=== PATIENT | male | born 1970 | race Two or more races ===

== ENCOUNTER 2017-06-12 10:35 | Emergency (ER) | payer OTHER ==
[~2017-06-12] VITALS: Ht 172.7 cm; Wt 117.9 kg
[~2017-06-12 10:35] MED LIST: CARVEDILOL25 MG ORAL; FUROSEMIDE80 MG ORAL; HYDROCHLOROTHIA50 MG ORAL; IBUPROFEN600 MG ORAL; LOSARTAN POTASS50 MG ORAL; NORCO 5-325 TA1 EACH ORAL
[2017-06-12 10:48] VITALS: BP 188/117
[2017-06-12] MEDS ORDERED: Cyclobenzaprine 10mg Tab ORAL ONE (11:30)
[2017-06-12 11:41] LABS: HEMATOCRIT 50.7 % (42.0-52.0); MEAN CORPUSCULAR VOLUME 91 FL (80-99); PLATELET COUNT 248 K/UL (150-450); RED CELL DISTRIBUTION WIDTH 14.9 % (11.6-14.8); WHITE BLOOD COUNT 6.7 K/UL (4.8-10.8)
--- NOTE | 2017-06-12 11:56 | Diagnostic Imaging Report ---
Indication: Rest pain Technique: XRAY Chest 1v Comparison: None Findings: Heart size within upper limits for normal. There is prominence of the upper mediastinum. Mass or adenopathy is not entirely excluded. There is no focal airspace consolidation, pleural effusion or pneumothorax. No acute osseous abnormality seen. IMPRESSION: Prominence of the superior mediastinum. Mass or adenopathy not excluded. Recommend CT of the chest with IV contrast for further evaluation. No focal airspace consolidation.
[2017-06-12 11:58] LABS: ANION GAP 6 mmol/L (5-15); BLOOD UREA NITROGEN 10 mg/dL (7-18); CALCIUM 8.9 MG/DL (8.5-10.1); CARBON DIOXIDE 33 MMOL/L (21-32); CHLORIDE 102 MMOL/L (98-107); CREATININE 1.1 MG/DL (0.55-1.30); POTASSIUM 3.9 MMOL/L (3.5-5.1); SODIUM 141 MMOL/L (136-145)
[2017-06-12 12:02] LABS: ALANINE AMINOTRANSFERASE 44 U/L (12-78); ALBUMIN 3.8 G/DL (3.4-5.0); ALBUMIN/GLOBULIN RATIO 0.8 (1.0-2.7); ALKALINE PHOSPHATASE 84 U/L (46-116); ASPARTATE AMINO TRANSFERASE 39 U/L (15-37); BILIRUBIN,TOTAL 0.4 MG/DL (0.2-1.0)
--- NOTE | 2017-06-12 12:26 | Emergency Room Report ---
History of Present Illness General Chief Complaint: Chest Pain Source: Patient Present Illness HPI 46-year-old male with history of hypertension and CHF presents with right neck pain radiating to his right chest, worse with moving the shoulder and neck Reports no shortness of breath, no fevers, no hemoptysis, no diaphoresis, no syncope He tried ibuprofen with only partial relief Allergies: Coded Allergies: NO KNOWN DRUG ALLERGIES (Verified Allergy, Unknown, 05/19/15) Patient History Past Medical History: see triage record Reviewed Nursing Documentation: PMH: Agreed; PSxH: Agreed Nursing Documentation-PMH Hx Cardiac Problems: Yes - Heart Failure since 2010 Hx Hypertension: Yes Hx Diabetes: No Review of Systems All Other Systems: negative except mentioned in HPI Physical Exam Vital Signs Date Time Temp Pulse Resp B/P (MAP) Pulse Ox O2 Delivery O2 Flow Rate FiO2 06/12/17 10:44 97.7 74 20 188/117 100 Room Air 97.7 Sp02 EP Interpretation: reviewed, normal General Appearance: no apparent distress, alert, non-toxic Head: normocephalic Eyes: bilateral eye normal inspection, bilateral eye PERRL, bilateral eye EOMI ENT: normal ENT inspection, hearing grossly normal, normal pharynx, no angioedema, normal voice, moist mucus membranes Neck: normal inspection, full range of motion, supple, supple/symm/no masses Respiratory: chest non-tender, lungs clear, normal breath sounds, chest symmetrical, palpation of chest normal Cardiovascular #1: normal peripheral pulses, regular rate, rhythm Cardiovascular #2: 2+ radial (R), 2+ radial (L), 2+ femoral (R), 2+ femoral (L) Gastrointestinal: normal inspection, non tender, soft, no mass, no guarding, no rebound Rectal: deferred Genitourinary: normal inspection, no CVA tenderness Musculoskeletal: back normal, gait/station normal, normal range of motion, non- tender, no calf tenderness, Yung's Sign negative Neurologic: alert, responsive, 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 Results Rhythm Strip Time: 12:23 EP Interpretation: yes Rate: EIGHTY SIX Rhythm: NSR, no PVC's, no ectopy, other Chest X-Ray Diagnostic Results Chest X-Ray Diagnostic Results : Chest X-Ray Ordered: Yes # of Views/Limited/Complete: 1 View Indication: Chest Pain EP Interpretation: Yes Interpretation: no consolidation, no effusion, no pneumothorax Impression: No acute disease Electronically Signed by: Valdo Guerra MD Last Vital Signs Date Time Temp Pulse Resp B/P (MAP) Pulse Ox O2 Delivery O2 Flow Rate FiO2 06/12/17 11:41 97.7 06/12/17 10:49 74 20 Room Air 06/12/17 10:48 188/117 100 VALDO GUERRA M.D Jun 12, 2017 12:26
[2017-06-12 14:08] VITALS: BP 156/96
--- NOTE | 2017-06-12 14:17 | Diagnostic Imaging Report ---
Indication: Chest pain, shortness of breath Technique: CT pulmonary angiogram performed utilizing automated exposure control with intravenous contrast. Axial, sagittal and coronal reconstructions were obtained. 3-D volumetric reconstructions were also performed. CT dose: Total DLP 1400.32 mGycm; CTDI vol 35.75 mGy Comparison: Correlation made to concurrent chest radiograph Findings: There is adequate opacification of the pulmonary arteries. There is no evidence of pulmonary embolism. The main pulmonary artery is normal in caliber. Thoracic aorta is normal in caliber. No definite evidence to suggest aortic dissection however exam is not optimized for evaluation of the aorta. There are mild atherosclerotic calcifications in the aortic arch. There is a common origin of the right brachiocephalic and left common carotid arteries (bovine arch). Proximal portions of the visualized great vessels are patent and normal in caliber. Abdominal aorta is normal in caliber. There is no definite focal airspace consolidation, pleural effusion or pneumothorax. There are mild dependent atelectatic changes in the posterior lungs bilaterally. There is a 6 mm nodule along the minor fissure in the right middle lobe (series 11 image #26). Heart size within normal limits. There is no pericardial effusion. There are borderline enlarged mediastinal bilateral hilar lymph nodes. Thyroid is unremarkable in appearance. There is a 1.4 cm low-attenuation structure in the right kidney which may represent a simple cyst. Remainder of the partially visualized upper abdomen grossly unremarkable. There are mild degenerative changes of the spine. No acute osseous abnormality seen. IMPRESSION: No pulmonary embolism. No thoracic aortic aneurysm or evidence to suggest aortic dissection. Mildly enlarged mediastinal and bilateral hilar lymph nodes. These findings are nonspecific. Potential considerations include sarcoidosis. Other etiologies are not excluded. Clinical correlation and follow-up exam recommended. 6 mm nodule in the right middle lobe. If patient considered high risk for lung cancer consider follow-up CT chest within 12 months. Probable right renal cyst. The CT scanner at [facility] is accredited by the [employer] and the scans are performed using protocols designed to limit radiation exposure to as low as reasonably achievable to attain images of sufficient resolution adequate for diagnostic evaluation.
[2017-06-12] MEDS ORDERED: CYCLOBENZAPRINE10 MG ORAL (14:44)
[2017-06-12 15:16] VITALS: BP 147/95
--- NOTE | 2017-06-13 18:10 | Cardiology Report ---
APPROVED REPORT EKG Measurement Heart [id number] Normal sinus rhythm Left axis deviation Incomplete left bundle branch block Abnormal ECG
== END 2017-06-12 15:19 | disposition home or self-care (01) ==
LOC: EMR 12:30
DX: R07.9 Chest pain, unspecified (principal); I11.0 Hypertensive heart disease with heart failure; I50.9 Heart failure, unspecified
CPT/HCPCS: 36415; 71045; 71275; 80053; 84484; 85007; 85025; 85379; 93005; 99284; Q9967

== ENCOUNTER 2017-12-16 10:12 | Emergency (ER) | payer OTHER ==
[~2017-12-16] VITALS: Ht 172.7 cm; Wt 113.4 kg
[~2017-12-16 10:12] MED LIST changes: +CYCLOBENZAPRINE10 MG ORAL
[2017-12-16 10:28] VITALS: BP 136/103
[2017-12-16] MEDS ORDERED: Sodium Chloride 500ML 500 ML IV ONE (10:37)
[2017-12-16] MEDS ORDERED: Lidocaine 2% Visc 15ml soln ORAL ONE (10:45)
[2017-12-16] MEDS ORDERED: Mylanta II UD 30ml ORAL ONE (10:45)
[2017-12-16] MEDS ORDERED: Dicyclomine HCl 10mg/5ml oral soln ORAL ONE (10:45)
[2017-12-16 10:52] LABS: BILIRUBIN, URINE 1+ (NEGATIVE); GLUCOSE, URINE (UA) NEGATIVE (NEGATIVE); KETONES,URINE 1+ (NEGATIVE); LEUKOCYTE ESTERASE ,URINE 1+ (NEGATIVE); NITRITE,URINE NEGATIVE (NEGATIVE); PH,URINE 6.5 (4.5-8.0); PROTEIN,URINE 2+ (NEGATIVE); UROBILINOGEN,URINE 8 MG/DL (0.0-1.0)
[2017-12-16 10:57] LABS: APPEARANCE,URINE SLIGHTLY CLOUDY; COLOR,URINE YELLOW
[2017-12-16 10:59] LABS: BASOPHILS % (AUTO) 1.9 % (0.0-2.0); EOSINOPHILS % (AUTO) 1.6 % (0.0-3.0); HEMATOCRIT 51.1 % (42.0-52.0); HEMOGLOBIN 16.2 G/DL (14.2-18.0); LYMPHOCYTES % (AUTO) 45.2 % (20.0-45.0); MEAN CORPUSCULAR VOLUME 85 FL (80-99); MONOCYTES % (AUTO) 12.8 % (1.0-10.0); NEUTROPHILS % (AUTO) 38.5 % (45.0-75.0); PLATELET COUNT 282 K/UL (150-450); RED BLOOD COUNT 5.98 M/UL (4.70-6.10); RED CELL DISTRIBUTION WIDTH 13.7 % (11.6-14.8); WHITE BLOOD COUNT 5.9 K/UL (4.8-10.8)
[2017-12-16 11:05] LABS: ANION GAP 5 mmol/L (5-15); BLOOD UREA NITROGEN 10 mg/dL (7-18); CALCIUM 8.7 MG/DL (8.5-10.1); CARBON DIOXIDE 30 MMOL/L (21-32); CHLORIDE 104 MMOL/L (98-107); CREATININE 1.1 MG/DL (0.55-1.30); POTASSIUM 3.6 MMOL/L (3.5-5.1); SODIUM 139 MMOL/L (136-145)
[2017-12-16 11:10] LABS: ALANINE AMINOTRANSFERASE 43 U/L (12-78); ALBUMIN 3.8 G/DL (3.4-5.0); ALBUMIN/GLOBULIN RATIO 0.9 (1.0-2.7); ALKALINE PHOSPHATASE 75 U/L (46-116); ASPARTATE AMINO TRANSFERASE 41 U/L (15-37); BILIRUBIN,TOTAL 0.5 MG/DL (0.2-1.0)
[2017-12-16] MEDS ORDERED: Isovue-300 100ml vial INJ PRN (12:15)
[2017-12-16] MEDS ORDERED: Morphine Sulfate 4mg/ml Inj (IV USE ONLY) IVP ONE (12:15)
--- NOTE | 2017-12-16 13:02 | Diagnostic Imaging Report ---
Clinical Indication: Left-sided abdominal pain radiating to the back after eating fast food one week ago Technique: No oral contrast utilized, per emergency room physician request IV administration nonionic contrast. Venous phase spiral acquisition obtained through the abdomen and pelvis. Multiplanar reconstructions were generated. Total dose length product 943.53 mGycm. CTDIvol(s) 19.75 mGy. Dose reduction achieved using automated exposure control Comparison: none Findings: Abdominal wall musculature is markedly atrophic and fatty replaced. There is degenerative change of the lower thoracic spine. The bones are otherwise unremarkable. The included lung bases are clear. Lack of enteric contrast limits assessment of the GI tract. The appendix is normal. There is colonic diverticulosis, predominantly involving the descending colon. There is very questionable minimal infiltration of the pericolonic fat adjacent to the descending colon. No small bowel distention. No free or loculated intraperitoneal gas or fluid is evident. There is a tiny fat-containing umbilical hernia. The distal esophagus, stomach, duodenum are unremarkable. The liver is diffusely hypoattenuating, consistent with fatty change. Is somewhat enlarged. No focal abnormality. The gallbladder and bile ducts are unremarkable. The pancreas is unremarkable. However, there is peripancreatic lymphadenopathy, with nodes measuring up to 2.9 cm long axis dimension. The spleen and adrenals are unremarkable. The right kidney demonstrates a small interpolar region cyst. Left kidney demonstrates 2 tiny subcentimeter low-attenuation lesions visible on the coronal images which are too small to characterize. No retroperitoneal or mesenteric mass or adenopathy. No pelvic mass or adenopathy. The bladder is nondistended. There is equivocal mild bladder wall thickening, but this is probably an artifact of lack of distention. Impression: Limited assessment of the GI tract, due to lack of enteric contrast administration Descending colonic diverticulosis. Equivocal trace infiltration of the pericolonic fat, of doubtful significance but if real could indicate very early diverticulitis No acute process otherwise Peripancreatic lymphadenopathy. Significance of this is uncertain Mildly enlarged fatty liver Marked atrophy and fatty replacement of the abdominal wall musculature Equivocal mild bladder wall thickening, probably an artifact of under distention Right renal cyst incidentally noted. 2 small to characterize left renal lesions, most likely benign cortical cysts. No further follow-up necessary Degenerative thoracic spondylosis incidentally noted The CT scanner at [facility] is accredited by the [employer] and the scans are performed using protocols designed to limit radiation exposure to as low as reasonably achievable to attain images of sufficient resolution adequate for diagnostic evaluation.
[2017-12-16] MEDS ORDERED: CIPROFLOXACIN500 M2 ORAL (13:35)
[2017-12-16] MEDS ORDERED: METRONIDAZOLE500 MG ORAL (13:35)
[2017-12-16] MEDS ORDERED: NORCO 5-325 TA1 EACH ORAL (13:35)
[2017-12-16] MEDS ORDERED: ROBAXIN-750750 MG PO (13:35)
[2017-12-16 14:08] VITALS: BP 130/78
--- NOTE | 2017-12-17 06:49 | Emergency Room Report ---
History of Present Illness General Chief Complaint: Abdominal Pain Source: Patient Present Illness HPI 47-year-old male presents ED for evaluation of abdominal pain. Started approximately one week ago. Left-sided, sharp, 8 out of 10, radiating to the back. Back pain is worse with twisting and bending. Denies fevers or chills. Denies nausea or vomiting. Denies any bloody stools. States he did lift something heavy last week which triggered his back pain. Denies chest pain or shortness of breath. No other aggravating relieving factors. Denies any other associated symptoms Allergies: Coded Allergies: NO KNOWN DRUG ALLERGIES (Verified Allergy, Unknown, 05/19/15) Patient History Past Medical History: HTN, CHF Past Surgical History: none Pertinent Family History: none Social History: Denies: smoking, alcohol use, drug use Immunizations: UTD Reviewed Nursing Documentation: PMH: Agreed; PSxH: Agreed Nursing Documentation-PMH Past Medical History: No History, Except For Hx Cardiac Problems: Yes - Heart Failure since 2010 Hx Hypertension: Yes Hx Diabetes: No Review of Systems All Other Systems: negative except mentioned in HPI Physical Exam Vital Signs Date Time Temp Pulse Resp B/P (MAP) Pulse Ox O2 Delivery O2 Flow Rate FiO2 12/16/17 10:18 99.0 79 18 136/103 95 Room Air 99.0 Sp02 EP Interpretation: reviewed, normal General Appearance: no apparent distress, alert, GCS 15, non-toxic, obese Head: normocephalic, atraumatic Eyes: bilateral eye normal inspection, bilateral eye PERRL ENT: hearing grossly normal, normal pharynx, no angioedema, normal voice Neck: full range of motion, supple/symm/no masses Respiratory: chest non-tender, lungs clear, normal breath sounds, speaking full sentences Cardiovascular #1: regular rate, rhythm, no edema Cardiovascular #2: 2+ carotid (R), 2+ carotid (L), 2+ radial (R), 2+ radial (L) , 2+ dorsalis pedis (R), 2+ dorsalis pedis (L) Gastrointestinal: normal bowel sounds, soft, non-distended, no guarding, no rebound, tenderness Rectal: deferred Genitourinary: normal inspection, no CVA tenderness Musculoskeletal: gait/station normal, normal range of motion, other - paraspinal tenderness Neurologic: alert, oriented x3, responsive, motor strength/tone normal, sensory intact, speech normal Psychiatric: judgement/insight normal, memory normal, mood/affect normal, no suicidal/homicidal ideation Reflexes: 3+ bicep (R), 3+ bicep (L), 3+ tricep (R), 3+ tricep (L), 3+ knee (R) , 3+ knee (L) Skin: normal color, no rash, warm/dry, well hydrated Lymphatic: no adenopathy Medical Decision Making Diagnostic Impression: Primary Impression: Diverticulosis Qualified Codes: K57.30 - Diverticulosis of large intestine without perforation or abscess without bleeding Additional Impression: Back strain Qualified Codes: S39.012A - Strain of muscle, fascia and tendon of lower back , initial encounter ER Course Hospital Course 47 yo M presents to ED c/o abdominal pain, back pain Differential diagnoses include: appendicitis, diverticulitis, SBO, kidney stone Clinical course 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 After initial history and physical I ordered labs, IV fluids, UA, pain medication and CT scan Labs - no leukocytosis, Hb/Hct stable. electrolytes ok. CT abdomen and pelvis - diverticulosis, possible early diverticulitis Discussed findings with patient, . Back pain is likely muscular. We will prescribe muscle relaxers. Patient is afebrile, nontoxic-appearing with no leukocytosis. I believe patient can be discharged to home with antibiotics, pain medications. Patient states he has a PMD to follow-up with. I feel this is a highly complex case requiring extensive working including EKG/ Rhythm strip, Xray/CT/US, Blood/urine lab work, repeat exams while in ED, and administration of strong opiates/narcotics for pain control, admission to hospital or close patient follow up. Diagnosis - diverticulosis, back pain stable and discharged to home with prescription for Cipro and Flagyl, [place], Robaxin . Followup with PMD. Return to ED if symptoms recur or worsen Labs Test 12/16/17 10:45 White Blood Count 5.9 K/UL (4.8-10.8) Red Blood Count 5.98 M/UL (4.70-6.10) Hemoglobin 16.2 G/DL (14.2-18.0) Hematocrit 51.1 % (42.0-52.0) Mean Corpuscular Volume 85 FL (80-99) Mean Corpuscular Hemoglobin 27.1 PG (27.0-31.0) Mean Corpuscular Hemoglobin Concent 31.7 G/DL (32.0-36.0) Red Cell Distribution Width 13.7 % (11.6-14.8) Platelet Count 282 K/UL (150-450) Mean Platelet Volume 8.4 FL (6.5-10.1) Neutrophils (%) (Auto) 38.5 % (45.0-75.0) Lymphocytes (%) (Auto) 45.2 % (20.0-45.0) Monocytes (%) (Auto) 12.8 % (1.0-10.0) Eosinophils (%) (Auto) 1.6 % (0.0-3.0) Basophils (%) (Auto) 1.9 % (0.0-2.0) Urine Color Yellow Urine Appearance Slightly cloudy Urine pH 6.5 (4.5-8.0) Urine Specific [place] 1.010 (1.005-1.035) Urine Protein 2+ (NEGATIVE) Urine Glucose (UA) Negative (NEGATIVE) Urine Ketones 1+ (NEGATIVE) Urine Blood Negative (NEGATIVE) Urine Nitrite Negative (NEGATIVE) Urine Bilirubin 1+ (NEGATIVE) Urine Ictotest Negative (NEGATIVE) Urine Urobilinogen 8 MG/DL (0.0-1.0) Urine Leukocyte Esterase 1+ (NEGATIVE) Urine RBC 0-2 /HPF (0 - 0) Urine WBC 2-4 /HPF (0 - 0) Urine Squamous Epithelial Cells Few /LPF (NONE/OCC) Urine Bacteria Few /HPF (NONE) Sodium Level 139 MMOL/L (136-145) Potassium Level 3.6 MMOL/L (3.5-5.1) Chloride Level 104 MMOL/L (98-107) Carbon Dioxide Level 30 MMOL/L (21-32) Anion Gap 5 mmol/L (5-15) Blood Urea Nitrogen 10 mg/dL (7-18) Creatinine 1.1 MG/DL (0.55-1.30) Estimat Glomerular Filtration Rate > 60 mL/min (>60) Glucose Level 116 MG/DL (74-106) Calcium Level 8.7 MG/DL (8.5-10.1) Total Bilirubin 0.5 MG/DL (0.2-1.0) Aspartate Amino Transf (AST/SGOT) 41 U/L (15-37) Alanine Aminotransferase (ALT/SGPT) 43 U/L (12-78) Alkaline Phosphatase 75 U/L (46-116) Total Protein 7.9 G/DL (6.4-8.2) Albumin 3.8 G/DL (3.4-5.0) Globulin 4.1 g/dL Albumin/Globulin Ratio 0.9 (1.0-2.7) Lipase 171 U/L (73-393) CT/MRI/US Diagnostic Results CT/MRI/US Diagnostic Results : Imaging Test Ordered: CT A/P Impression diverticulosis sigmoid colon, possible early diverticulitis Last Vital Signs Date Time Temp Pulse Resp B/P (MAP) Pulse Ox O2 Delivery O2 Flow Rate FiO2 12/16/17 14:08 98.0 78 18 130/78 98 Room Air Status: improved Disposition: HOME, SELF-CARE Condition: Stable Scripts Methocarbamol* (ROBAXIN-750*) 750 Mg Tablet 750 MG PO TID, #21 TAB 0 Refills Prov: Brandon Sen MD 12/16/17 Hydrocodone Bit/Acetaminophen 5-325* (NORCO 5-325*) 1 Each Tablet 1 TAB ORAL Q6H PRN for For Pain, #10 TAB 0 Refills Prov: Brandon Sen MD 12/16/17 Metronidazole* (FLAGYL*) 500 Mg Tablet 500 MG ORAL THREE TIMES A DAY, #21 TAB Prov: Brandon Sen MD 12/16/17 Ciprofloxacin Hcl* (CIPROFLOXACIN HCL*) 500 Mg Tablet 500 MG ORAL Q12H, #14 TAB 0 Refills Prov: Brandon Sen MD 12/16/17 Patient Instructions: Diverticulitis, [id number] Brandon Sen MD Dec 17, 2017 06:49
== END 2017-12-16 14:13 | disposition home or self-care (01) ==
LOC: EMR 10:35
DX: K57.90 Diverticulosis of intestine, part unspecified, without perforation or abscess without bleeding (principal); M54.9 Dorsalgia, unspecified; I11.0 Hypertensive heart disease with heart failure; I50.9 Heart failure, unspecified
CPT/HCPCS: 36415; 74177; 80053; 81003; 83690; 85025; 96374; 96375; 99284; J2270; J7040; Q9967; S0028

== ENCOUNTER 2017-12-30 13:43 | Emergency (ER) | payer OTHER ==
[~2017-12-30] VITALS: Ht 172.7 cm; Wt 113.4 kg
[~2017-12-30 13:43] MED LIST changes: +CIPROFLOXACIN500 M2 ORAL; +METRONIDAZOLE500 MG ORAL; +ROBAXIN-750750 MG PO
[2017-12-30] MEDS ORDERED: Isovue-300 100ml vial INJ PRN (14:15)
[2017-12-30 14:40] LABS: BASOPHILS % (AUTO) 0.8 % (0.0-2.0); EOSINOPHILS % (AUTO) 1.5 % (0.0-3.0); HEMATOCRIT 47.2 % (42.0-52.0); HEMOGLOBIN 15.5 G/DL (14.2-18.0); LYMPHOCYTES % (AUTO) 41.8 % (20.0-45.0); MEAN CORPUSCULAR VOLUME 86 FL (80-99); MONOCYTES % (AUTO) 14.4 % (1.0-10.0); NEUTROPHILS % (AUTO) 41.6 % (45.0-75.0); PLATELET COUNT 285 K/UL (150-450); RED BLOOD COUNT 5.51 M/UL (4.70-6.10); WHITE BLOOD COUNT 5.8 K/UL (4.8-10.8)
--- NOTE | 2017-12-30 14:54 | Emergency Room Report ---
History of Present Illness General Chief Complaint: Abdominal Pain Source: Patient, Medical Record Present Illness HPI This patient states he was seen about a week ago for abdominal pain. He was seen here and placed on antibiotics for possible diverticulitis. He states that he took the antibiotics as prescribed but continues to have pain in the left side of his abdomen. He has had some diarrhea. He denies constipation. He denies fever or chills. He denies nausea or vomiting. He has no other complaints. Allergies: Coded Allergies: NO KNOWN DRUG ALLERGIES (Verified Allergy, Unknown, 05/19/15) Patient History Past Medical History: see triage record, HTN, CHF Social History: Denies: smoking, alcohol use, drug use Reviewed Nursing Documentation: PMH: Agreed; PSxH: Agreed Nursing Documentation-PMH Past Medical History: No History, Except For Hx Cardiac Problems: Yes - Heart Failure since 2010 Hx Hypertension: Yes Hx Diabetes: No Review of Systems All Other Systems: negative except mentioned in HPI Physical Exam Vital Signs Date Time Temp Pulse Resp B/P (MAP) Pulse Ox O2 Delivery O2 Flow Rate FiO2 12/30/17 13:47 98.2 118 18 117/82 97 Room Air 98.2 Sp02 EP Interpretation: reviewed, normal General Appearance: no apparent distress, alert, GCS 15, non-toxic Head: normocephalic, atraumatic Eyes: bilateral eye normal inspection, bilateral eye PERRL ENT: hearing grossly normal, normal pharynx, no angioedema, normal voice Neck: full range of motion, supple/symm/no masses Respiratory: chest non-tender, lungs clear, normal breath sounds, no respiratory distress, no retraction, no accessory muscle use, speaking full sentences Cardiovascular #1: regular rate, rhythm, no edema Gastrointestinal: normal bowel sounds, soft, non-distended, no guarding, no rebound, tenderness - TTP in the L. abdomen LUQ and LLQ. Rectal: deferred Musculoskeletal: back normal, gait/station normal, normal range of motion, non- tender Neurologic: alert, oriented x3, responsive, motor strength/tone normal, sensory intact, speech normal Psychiatric: judgement/insight normal, memory normal, mood/affect normal, no suicidal/homicidal ideation Skin: normal color, no rash, warm/dry, well hydrated Medical Decision Making Diagnostic Impression: Primary Impression: Abdominal pain Additional Impression: Lymphadenopathy ER Course This patient was treated with a course of antibiotics for early diverticulitis based on a CT week ago. Given the patient's ongoing symptoms and tenderness of palpation the left abdomen, I felt that I should repeat the CT scan for concern of complicated diverticulitis or other etiology the patient's symptoms. Also a consideration at that time is colitis given the diarrhea. CT of the abdomen and pelvis showed no evidence of diverticulitis. There was noted again for this patient to have tha-pancreatic lymphadenopathy. I am uncertain of the significance of this. Possibly this could be a viral inflammation versus neoplastic. The patient was instructed to follow-up with his primary care physician for further monitoring and workup. The patient's laboratory values are also unremarkable. At this time, I did not identify an emergency medical condition. The patient is instructed follow closely with his primary care physician. Laboratory Tests Test 12/30/17 14:00 12/30/17 15:00 White Blood Count 5.8 K/UL (4.8-10.8) Red Blood Count 5.51 M/UL (4.70-6.10) Hemoglobin 15.5 G/DL (14.2-18.0) Hematocrit 47.2 % (42.0-52.0) Mean Corpuscular Volume 86 FL (80-99) Mean Corpuscular Hemoglobin 28.1 PG (27.0-31.0) Mean Corpuscular Hemoglobin Concent 32.8 G/DL (32.0-36.0) Red Cell Distribution Width 14.0 % (11.6-14.8) Platelet Count 285 K/UL (150-450) Mean Platelet Volume 8.4 FL (6.5-10.1) Neutrophils (%) (Auto) 41.6 % (45.0-75.0) L Lymphocytes (%) (Auto) 41.8 % (20.0-45.0) Monocytes (%) (Auto) 14.4 % (1.0-10.0) H Eosinophils (%) (Auto) 1.5 % (0.0-3.0) Basophils (%) (Auto) 0.8 % (0.0-2.0) Sodium Level 140 MMOL/L (136-145) Potassium Level 4.1 MMOL/L (3.5-5.1) Chloride Level 102 MMOL/L (98-107) Carbon Dioxide Level 29 MMOL/L (21-32) Anion Gap 9 mmol/L (5-15) Blood Urea Nitrogen 12 mg/dL (7-18) Creatinine 1.2 MG/DL (0.55-1.30) Estimate Glomerular Filtration Rate > 60 mL/min (>60) Glucose Level 106 MG/DL (74-106) Calcium Level 8.9 MG/DL (8.5-10.1) Total Bilirubin 0.5 MG/DL (0.2-1.0) Aspartate Amino Transferase (AST) 43 U/L (15-37) H Alanine Aminotransferase (ALT) 58 U/L (12-78) Alkaline Phosphatase 71 U/L (46-116) Total Protein 8.3 G/DL (6.4-8.2) H Albumin 3.8 G/DL (3.4-5.0) Globulin 4.5 g/dL Albumin/Globulin Ratio 0.8 (1.0-2.7) L Lipase 241 U/L (73-393) Urine Color Pale yellow Urine Appearance Clear Urine pH 7 (4.5-8.0) Urine Specific [place] 1.005 (1.005-1.035) Urine Protein 1+ (NEGATIVE) H Urine Glucose (UA) Negative (NEGATIVE) Urine Ketones Negative (NEGATIVE) Urine Blood Negative (NEGATIVE) Urine Nitrite Negative (NEGATIVE) Urine Bilirubin Negative (NEGATIVE) Urine Urobilinogen Normal MG/DL (0.0-1.0) Urine Leukocyte Esterase 1+ (NEGATIVE) H Urine RBC 0-2 /HPF (0 - 0) H Urine WBC 0-2 /HPF (0 - 0) Urine Squamous Epithelial Cells None /LPF (NONE/OCC) Urine Bacteria Few /HPF (NONE) CT/MRI/US Diagnostic Results CT/MRI/US Diagnostic Results : Imaging Test Ordered: CT abd/pelvis Impression Impression: No definite acute abnormality Colonic diverticulosis. No evidence of acute diverticulitis. Note that previously questioned pericolonic fat stranding is noted all evident currently. Peripancreatic lymphadenopathy, also previously reported. Significance/etiology uncertain, could be reactive or neoplastic. Considerable fatty replacement and atrophy of the abdominal wall musculature, also previously reported. Incidental finding right renal cyst, also previously reported Last Vital Signs Date Time Temp Pulse Resp B/P (MAP) Pulse Ox O2 Delivery O2 Flow Rate FiO2 12/30/17 13:47 98.2 118 18 117/82 97 Room Air 98.2 Status: improved Disposition: HOME, SELF-CARE Condition: Improved Referrals: ANNE-MARIE IBRAHIMREFERRING (PCP) Patient Instructions: Abdominal Pain, Adult Babita Patel DO Dec 30, 2017 14:54
[2017-12-30 14:57] VITALS: BP 120/84
[2017-12-30 15:05] LABS: ANION GAP 9 mmol/L (5-15); BLOOD UREA NITROGEN 12 mg/dL (7-18); CALCIUM 8.9 MG/DL (8.5-10.1); CARBON DIOXIDE 29 MMOL/L (21-32); CHLORIDE 102 MMOL/L (98-107); CREATININE 1.2 MG/DL (0.55-1.30); POTASSIUM 4.1 MMOL/L (3.5-5.1); SODIUM 140 MMOL/L (136-145)
[2017-12-30 15:10] LABS: ALANINE AMINOTRANSFERASE 58 U/L (12-78); ALBUMIN 3.8 G/DL (3.4-5.0); ALBUMIN/GLOBULIN RATIO 0.8 (1.0-2.7); ALKALINE PHOSPHATASE 71 U/L (46-116); ASPARTATE AMINO TRANSFERASE 43 U/L (15-37); BILIRUBIN,TOTAL 0.5 MG/DL (0.2-1.0)
[2017-12-30 15:27] LABS: APPEARANCE,URINE CLEAR; BILIRUBIN, URINE NEGATIVE (NEGATIVE); COLOR,URINE PALE YELLOW; GLUCOSE, URINE (UA) NEGATIVE (NEGATIVE); KETONES,URINE NEGATIVE (NEGATIVE); LEUKOCYTE ESTERASE ,URINE 1+ (NEGATIVE); NITRITE,URINE NEGATIVE (NEGATIVE); PH,URINE 7 (4.5-8.0); PROTEIN,URINE 1+ (NEGATIVE); UROBILINOGEN,URINE NORMAL MG/DL (0.0-1.0)
--- NOTE | 2017-12-30 16:16 | Diagnostic Imaging Report ---
Clinical Indication: Abdominal pain Technique: No oral contrast utilized, per emergency room physician request IV administration nonionic contrast. Venous phase spiral acquisition obtained through the abdomen and pelvis. Multiplanar reconstructions were generated. Total dose length product 1322.58 mGycm. CTDIvol(s) 26.2 mGy. Dose reduction achieved using automated exposure control Comparison: 12/16/2017 Findings: Lack of enteric contrast administration limits assessment of the GI tract. There are a few colonic diverticula. No evidence of acute diverticulitis. Previously demonstrated pericolonic fat stranding is not all evident currently. The appendix is normal. No small bowel distention. No free or loculated intraperitoneal gas or fluid is demonstrated. The distal esophagus, stomach, duodenum are unremarkable. Previously demonstrated hepatic low attenuation is not evident currently. The liver, gallbladder, bile ducts, pancreas, spleen, adrenals, left kidney are unremarkable. Previously reported left renal subcentimeter low-attenuation lesions are not evident on this exam. The right kidney demonstrates a lower pole cyst. Previously demonstrated peripancreatic lymphadenopathy is again demonstrated. No retroperitoneal or mesenteric mass or adenopathy. No pelvic mass or adenopathy. The included lung bases are clear. There is considerable atrophy and fatty infiltration of the abdominal wall musculature again noted. The bones are unremarkable. Impression: No definite acute abnormality Colonic diverticulosis. No evidence of acute diverticulitis. Note that previously questioned pericolonic fat stranding is noted all evident currently. Peripancreatic lymphadenopathy, also previously reported. Significance/etiology uncertain, could be reactive or neoplastic. Considerable fatty replacement and atrophy of the abdominal wall musculature, also previously reported. Incidental finding right renal cyst, also previously reported The CT scanner at [facility] is accredited by the [employer] and the scans are performed using protocols designed to limit radiation exposure to as low as reasonably achievable to attain images of sufficient resolution adequate for diagnostic evaluation.
[2017-12-30] MEDS ORDERED: IBUPROFEN800 MG ORAL (16:26)
[2017-12-30] MEDS ORDERED: Ketorolac 30mg Inj IV ONE (16:30)
[2017-12-30 16:35] VITALS: BP 119/82
[2017-12-30 16:36] VITALS: BP 119/82
== END 2017-12-30 16:36 | disposition home or self-care (01) ==
LOC: EMR 14:12
DX: R10.9 Unspecified abdominal pain (principal); R59.0 Localized enlarged lymph nodes; I11.0 Hypertensive heart disease with heart failure; I50.9 Heart failure, unspecified
CPT/HCPCS: 36415; 74177; 80053; 81003; 83690; 85025; 96361; 96374; 99284; J1885; Q9967

== ENCOUNTER 2018-07-09 09:48 | Emergency (ER) | payer OTHER ==
[~2018-07-09] VITALS: Ht 172.7 cm; Wt 117.0 kg
[~2018-07-09 09:48] MED LIST changes: +IBUPROFEN800 MG ORAL
--- NOTE | 2018-07-09 10:39 | NUR ---
ED Nurse Note: Patient c/o pain over the left shoulder and upper back pain x 1 1/2 weeks. Per patient, patient slept wrong about 2 weeks ago and started having the pain. Patient reports no CP, SOB or dyspnea. Reports no recent injury. Patient attempted to relieve the pain with ICY/HOT patch, pain meds at home. Patients states he feels like it's muscle pain. Reports no numbness or tingling in the left arm.
--- NOTE | 2018-07-09 10:55 | Emergency Room Report ---
History of Present Illness General Chief Complaint: Pain Source: Patient Present Illness HPI Patient is a 47-year-old male presented after increased left-sided shoulder pain. Patient reports having increased pain to the left upper extremity. He reports having prior history of pain onset approximately 2 weeks ago. Patient states this is improved by position. He reports having prior history of cardiomyopathy and states that his ejection fraction was previously in the 20s. He denies any current shortness of breath. He states that he has been having pain worse with movement which Is somewhat improved by abduction.Patient states that patient states is been taking muscle relaxers without any improvement. Allergies: Coded Allergies: NO KNOWN DRUG ALLERGIES (Verified Allergy, Unknown, 05/19/15) Patient History Past Medical History: see triage record Reviewed Nursing Documentation: PMH: Agreed; PSxH: Agreed Nursing Documentation-PMH Past Medical History: No History, Except For Hx Cardiac Problems: Yes - Heart Failure since 2010 Hx Hypertension: Yes Hx Pacemaker: Yes - ICD on L side Hx Diabetes: No Review of Systems All Other Systems: negative except mentioned in HPI Physical Exam Vital Signs Date Time Temp Pulse Resp B/P (MAP) Pulse Ox O2 Delivery O2 Flow Rate FiO2 07/09/18 10:08 98.6 72 16 143/104 97 Room Air Sp02 EP Interpretation: reviewed, normal General Appearance: normal inspection, well appearing, no apparent distress, alert, GCS 15, obese Head: atraumatic ENT: normal ENT inspection, hearing grossly normal, normal voice Neck: normal inspection, full range of motion, supple, no bony tend Respiratory: normal inspection, lungs clear, normal breath sounds, no respiratory distress, no retraction, no wheezing Cardiovascular #1: regular rate, rhythm, no edema Gastrointestinal: normal inspection, normal bowel sounds, non tender, soft, no guarding, no hernia Genitourinary: no CVA tenderness Musculoskeletal: normal inspection, back normal, normal range of motion Neurologic: normal inspection, alert, oriented x3, responsive, 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 Differential diagnosis include was not limited to cervical radiculopathy, rotator cuff injury, myocardial infarction among others. Patient's pain appears to be musculoskeletal nature. He has reproducible tenderness to the left side of his neck as well as to his left posterior arm.Patient was offered imaging studies which he declined. Patient was advised to recheck with primary care physician for reevaluation. EKG showed no evidence of acute myocardial injury but showed pacemaker status. Patient was given prescription for medications for pain. He was placed in a sling. He was advised to take his arm out of sling daily to prevent decreased range of motion. Last Vital Signs Date Time Temp Pulse Resp B/P (MAP) Pulse Ox O2 Delivery O2 Flow Rate FiO2 07/09/18 10:08 98.6 72 16 143/104 97 Room Air Status: improved Disposition: HOME, SELF-CARE Condition: Stable Scripts Gabapentin* (GABAPENTIN*) 400 Mg Capsule 400 MG ORAL THREE TIMES A DAY, #30 CAP 0 Refills Prov: Nico Maxwell MD 07/09/18 Referrals: NON PHYSICIAN (PCP) Nico Maxwell MD Jul 09, 2018 10:55
[2018-07-09] MEDS ORDERED: Cyclobenzaprine 10mg Tab ORAL ONE (11:00)
[2018-07-09] MEDS ORDERED: HYDROcodone/Acetamin 5/325 tab ORAL ONE (11:00)
--- NOTE | 2018-07-09 11:20 | NUR ---
ED Nurse Note: Report given to SREE Marroquin.
[2018-07-09 11:30] VITALS: BP 143/104
[2018-07-09] MEDS ORDERED: GABAPENTIN400 MG ORAL (12:20)
[2018-07-09 12:32] VITALS: BP 132/98
--- NOTE | 2018-07-09 12:32 | NUR ---
ED Nurse Note: pt cleared to be d/c per ERMD, pt discharge and aftercare instruction provided w/ prescription, pt education done via discussion and handout, pt advised to follow up with pcp or return to ed if changes in condition, pt verbalized understanding and agrees with plan, vss, ambulatory w/ steady gait, left w/ all belongings, pt accompanied by spouse member.
== END 2018-07-09 12:32 | disposition home or self-care (01) ==
LOC: EMR 10:24
DX: M54.12 Radiculopathy, cervical region (principal); Z95.810 Presence of automatic (implantable) cardiac defibrillator; I10 Essential (primary) hypertension
CPT/HCPCS: 93005; 99282

== ENCOUNTER 2018-12-22 11:17 | Emergency (ER) | payer OTHER ==
[~2018-12-22] VITALS: Ht 172.7 cm; Wt 117.0 kg
[~2018-12-22 11:17] MED LIST changes: +GABAPENTIN400 MG ORAL
[2018-12-22 11:29] VITALS: BP 136/101
--- NOTE | 2018-12-22 11:31 | NUR ---
ED Nurse Note: Pt walked in due to heaviness/pressure on his chest that started yesterday d/t being unable to take his lasix medication. Hx of CHF and ICD on his left side chest. Denies CP and SOB at this time. Pt wants to get an evaluation. AAO x4 and ambulates with steady gait. No respiratory distress. Family member at the bed side.
--- NOTE | 2018-12-22 11:56 | NUR ---
HAND-OFF: Report given to Nicolle BALBUENA.
--- NOTE | 2018-12-22 12:30 | NUR ---
ED Nurse Note: cxr at bedside.
--- NOTE | 2018-12-22 12:59 | Diagnostic Imaging Report ---
Indication: Dyspnea Comparison: 06/12/2017 A single view chest radiograph was obtained. Findings: There is a pacemaker on the left. Leads projected over the right atrium and right ventricle are demonstrated. Cardiomegaly is again noted. There may be mild pulmonary vascular congestion present currently. Correlate clinically. The bones are unremarkable. IMPRESSION: Possible mild pulmonary vascular congestion.
[2018-12-22 13:00] VITALS: BP 127/98
[2018-12-22 13:09] VITALS: BP 136/101
--- NOTE | 2018-12-22 13:10 | NUR ---
ER DISCHARGE NOTE: Patient is cleared to be discharged per ERMD DR TOBIAS, pt is aox4, on room air, with stable vital signs. pt was given dc instructions, pt was able to verbalize understanding, pt id band removed without complications. pt is able to ambulate with steady gait. pt took all belongings.
--- NOTE | 2018-12-22 15:22 | Emergency Room Report ---
History of Present Illness General Chief Complaint: Chest Pain Source: Patient, Family Member Present Illness HPI 48-year-old male presents ED for evaluation. Patient states that he had episode of shortness of breath yesterday. Started after he forgot to take his Lasix and BP meds. States he took his medications and he started to feel better. Patient has no symptoms today but wanted to get checked out. Denies chest pain or shortness of breath. States he is otherwise compliant with his medications. Denies drug use. Denies cough. Denies fevers or chills. No other aggravating relieving factors. Denies any other associated symptoms Allergies: Coded Allergies: NO KNOWN DRUG ALLERGIES (Verified Allergy, Unknown, 05/19/15) Patient History Past Medical History: HTN Past Surgical History: pacemaker Pertinent Family History: none Social History: Denies: smoking, alcohol use, drug use Immunizations: UTD Reviewed Nursing Documentation: PMH: Agreed; PSxH: Agreed Nursing Documentation-PMH Past Medical History: No History, Except For Hx Cardiac Problems: Yes - Heart Failure since 2010 Hx Hypertension: Yes Hx Pacemaker: Yes - ICD on L side Hx Diabetes: No Review of Systems All Other Systems: negative except mentioned in HPI Physical Exam Vital Signs Date Time Temp Pulse Resp B/P (MAP) Pulse Ox O2 Delivery O2 Flow Rate FiO2 12/22/18 11:25 98.2 89 16 136/101 (113) 98 Room Air Sp02 EP Interpretation: reviewed, normal General Appearance: no apparent distress, alert, GCS 15, non-toxic, obese Head: normocephalic, atraumatic Eyes: bilateral eye normal inspection, bilateral eye PERRL ENT: hearing grossly normal, normal pharynx, no angioedema, normal voice Neck: full range of motion, supple/symm/no masses Respiratory: chest non-tender, lungs clear, normal breath sounds, speaking full sentences Cardiovascular #1: regular rate, rhythm, no edema Cardiovascular #2: 2+ carotid (R), 2+ carotid (L), 2+ radial (R), 2+ radial (L) , 2+ dorsalis pedis (R), 2+ dorsalis pedis (L) Gastrointestinal: normal bowel sounds, non tender, soft, non-distended, no guarding, no rebound Rectal: deferred Genitourinary: normal inspection, no CVA tenderness Musculoskeletal: back normal, gait/station normal, normal range of motion, non- tender Neurologic: alert, oriented x3, responsive, motor strength/tone normal, sensory intact, speech normal Psychiatric: judgement/insight normal, memory normal, mood/affect normal, no suicidal/homicidal ideation Reflexes: 3+ bicep (R), 3+ bicep (L), 3+ tricep (R), 3+ tricep (L), 3+ knee (R) , 3+ knee (L) Lymphatic: no adenopathy Medical Decision Making Diagnostic Impression: Primary Impression: CHF (congestive heart failure) Qualified Codes: I50.9 - Heart failure, unspecified ER Course Hospital Course 48-year-old male presents ED with shortness of breath episode yesterday. No symptoms today Differential diagnoses include: Rib fracture, RI/unstable angina, contusion, muscle strain Clinical course Patient placed on stretcher. After initial history physical exam reveals obese male in no acute distress. Lungs clear. Heart sounds normal. No pitting edema. Vitals stable. EKGnormal sinus rhythm no acute ischemic changes interpreted by me (unchanged from prior EKGs) CXR - pulmonary congestion, cardiomegaly, pacemaker discussed findings with patient. Asymptomatic. Vitals stable. Normal EKG and chest x-ray. I do not believe patient requires further work-up at this time. Patient understands the importance of medication compliance. Patient also agrees to no additional work-up at this time and would like to follow-up with his PMD. Safe for discharge with close outpatient follow-up I. I feel this is a highly complex case requiring extensive working including EKG/Rhythm strip, Xray/CT/US, Blood/urine lab work, repeat exams while in ED, and administration of strong opiates/narcotics for pain control, admission to hospital or close patient follow up. Diagnosis - CHF Stable and discharged to home. Instructed to followup with PMD. Return to ED if symptoms recur or worsen EKG Diagnostic Results Rate: normal Rhythm: NSR ST Segments: no acute changes ASA given to the pt in ED: No Rhythm Strip Diag. Results EP Interpretation: yes Rhythm: NSR, no PVC's, no ectopy Chest X-Ray Diagnostic Results Chest X-Ray Diagnostic Results : Chest X-Ray Ordered: Yes # of Views/Limited/Complete: 1 View Indication: Shortness of Breath EP Interpretation: Yes Interpretation: no consolidation, no effusion, no pneumothorax, no acute cardiopulmonary disease, other - cardiomegaly. pacaemaker Impression: Other - chf Electronically Signed by: Electronically signed by Brandon Sen MD Last Vital Signs Date Time Temp Pulse Resp B/P (MAP) Pulse Ox O2 Delivery O2 Flow Rate FiO2 12/22/18 13:09 98.2 86 15 136/101 98 Room Air Status: improved Disposition: HOME, SELF-CARE Condition: Stable Patient Instructions: Heart Failure, [id number] Brandon Sen MD Dec 22, 2018 15:22
== END 2018-12-22 13:09 | disposition home or self-care (01) ==
LOC: EMR 12:25
DX: I11.0 Hypertensive heart disease with heart failure (principal); I50.9 Heart failure, unspecified; Z95.810 Presence of automatic (implantable) cardiac defibrillator
CPT/HCPCS: 71045; 93005; 99283

== ENCOUNTER 2019-02-22 07:36 | Emergency (ER) | payer OTHER ==
[~2019-02-22] VITALS: Ht 172.7 cm; Wt 115.7 kg
--- NOTE | 2019-02-22 07:48 | NUR ---
Note phill in EDM - 02/22/19 at 0758 by JAMI ED Nurse Note: Pt brought in from the street by ODETTE RA 62 for cough/congestion onset a couple days ago. ODETTE notes pt initial oxygen sat was 92% and had wheezing. ODETTE gave one albuteral treatment en route. Pt is currently at 96% oxygen sat in the ER. Pt is breathing normal and unlabored, speaking in full sentences. Pt aaox4. Pt denies permanent residing address. Pt placed on cnc operator and in hospital gown. Will continue to monitor.
[2019-02-22 07:52] VITALS: BP 139/83
--- NOTE | 2019-02-22 08:01 | NUR ---
ED Nurse Note: Pt walked into ED with w/ c/o cough, congestion since thursday02/19/19. Py states he has had nausea, has vomited 1x in the past few days, and feels fatigued. No acute distress. Pt lungs clear to to auscultation. Will cont to monitor.
[2019-02-22 08:03] VITALS: BP 137/82
[2019-02-22] MEDS ORDERED: TAMIFLU75 MG ORAL (09:31)
[2019-02-22] MEDS ORDERED: TUSSIN100 MG/51 PO (09:31)
[2019-02-22 09:35] VITALS: BP 109/69
--- NOTE | 2019-02-22 09:35 | NUR ---
ER DISCHARGE NOTE: Patient is cleared to be discharged per ERMD, pt is aox4, on room air, with stable vital signs. pt was given dc and prescription instructions, pt was able to verbalize understanding, pt id band removed. pt is able to ambulate with steady gait. pt took all belongings. 2 prescriptions provided.
--- NOTE | 2019-02-22 10:49 | Diagnostic Imaging Report ---
Indication: Shortness of breath Technique: One view of the chest Comparison: 12/22/2018 Findings: Right hilar fullness is again demonstrated. This is equivocally somewhat increased from earlier studies. The heart is mildly enlarged. No definite infiltrates, effusions, or congestion. There is a left chest AICD Impression: Right hilar fullness, equivocally increased from earlier studies. Note that prior chest CT angiogram of 06/12/2017 demonstrated borderline right hilar lymphadenopathy; possibly enlarging adenopathy should be considered if this has not been worked up previously. This was discussed by phone with Dr. Garcia at the time of interpretation Cardiomegaly No acute cardiopulmonary process
--- NOTE | 2019-02-22 13:01 | Emergency Room Report ---
History of Present Illness General Chief Complaint: Flu Like Symptoms Source: Patient Present Illness HPI Patient presents with complaints of cough congestion nasal congestion Symptoms ongoing for the past 2 weeks Patient is here with his significant other who has similar symptoms However the patient does have cardiac disease and previous history of CHF and therefore presents for further evaluation Denies any leg swelling denies any vomiting or diarrhea denies any recent travel denies any pleurisy Allergies: Coded Allergies: RIVAROXABAN (Verified Allergy, Unknown, 02/22/19) Patient History Past Medical History: see triage record Reviewed Nursing Documentation: PMH: Agreed; PSxH: Agreed Nursing Documentation-PMH Hx Cardiac Problems: Yes - Heart Failure since 2010 Hx Hypertension: Yes Hx Pacemaker: Yes - ICD on L side Hx Diabetes: No Review of Systems All Other Systems: negative except mentioned in HPI Physical Exam Vital Signs Date Time Temp Pulse Resp B/P (MAP) Pulse Ox O2 Delivery O2 Flow Rate FiO2 02/22/19 07:47 99.7 91 22 139/83 (101) 95 Room Air 02/22/19 08:03 99 Sp02 EP Interpretation: reviewed, normal General Appearance: well appearing, no apparent distress Head: normocephalic, atraumatic Eyes: bilateral eye PERRL, bilateral eye EOMI ENT: hearing grossly normal, EOM grossly intact Neck: supple Respiratory: lungs clear, no respiratory distress, no retraction Cardiovascular #1: regular rate, rhythm Gastrointestinal: non tender, soft Musculoskeletal: normal inspection Neurologic: alert Psychiatric: normal inspection Skin: no rash - No edema Lymphatic: no adenopathy Medical Decision Making Diagnostic Impression: Primary Impression: Influenza-like symptoms ER Course Given the patient's history and examination multiple differentials are in consideration including but not limited to cardiac, cardiopulmonary, infectious process Patient did have chest x-ray obtained does not show any obvious pulmonary congestion patient remains hemodynamically stable and is Treated at this time with likely influenza-like symptoms Chest X-Ray Diagnostic Results Chest X-Ray Diagnostic Results : Chest X-Ray Ordered: Yes # of Views/Limited/Complete: 1 View Indication: Shortness of Breath EP Interpretation: Yes Interpretation: no consolidation, no effusion, no acute cardiopulmonary disease Impression: No acute disease - cardiomegaly Electronically Signed by: oswald garcia DO Last Vital Signs Date Time Temp Pulse Resp B/P (MAP) Pulse Ox O2 Delivery O2 Flow Rate FiO2 02/22/19 09:35 97.9 69 17 109/69 100 Room Air 02/22/19 08:03 99 Status: improved Disposition: HOME, SELF-CARE Condition: Improved Scripts Guaifenesin (TUSSIN) 100 Mg/5 Ml Liquid 100 MG PO QHS for 7 Days, ML Prov: Oswald Garcia DO 02/22/19 Oseltamivir Phosphate (Tamiflu) 75 Mg Capsule 75 MG ORAL TWICE A DAY for 5 Days, CAP Prov: Oswald Garcia DO 02/22/19 Referrals: NON PHYSICIAN (PCP) [facility] Patient Instructions: Influenza, Adult, [id number] Additional Instructions: Patient is provided with the discharge instructions notified to follow up with primary doctor in the next 2-3 days otherwise return to the er with any worsening symptoms. Please note that this report is being documented using Traansmission technology. This can lead to erroneous entry secondary to incorrect interpretation by the dictating instrument. Oswald Garcia DO Feb 22, 2019 13:01
--- NOTE | 2019-02-23 15:26 | Cardiology Report ---
APPROVED REPORT EKG Measurement Heart [id number] Sinus rhythm with premature supraventricular complexes Possible Left atrial enlargement Left axis deviation Nonspecific intraventricular block Inferior infarct, age undetermined Abnormal ECG
== END 2019-02-22 09:35 | disposition home or self-care (01) ==
LOC: EMR 08:45
DX: J11.1 Influenza due to unidentified influenza virus with other respiratory manifestations (principal); I11.0 Hypertensive heart disease with heart failure; I50.9 Heart failure, unspecified; Z88.8 Allergy status to other drugs, medicaments and biological substances
CPT/HCPCS: 71045; 93005; 99283

== ENCOUNTER 2019-07-18 08:47 | Inpatient (IN) | payer OTHER ==
[2019-07-18] VITALS (8 sets, daily range): BP systolic 111–137; BP diastolic 66–109
[~2019-07-18] VITALS: Ht 172.7 cm; Wt 122.5 kg
[~2019-07-18 08:47] MED LIST changes: +TAMIFLU75 MG ORAL; +TUSSIN100 MG/51 PO
--- NOTE | 2019-07-18 08:52 | Emergency Room Report ---
History of Present Illness General Chief Complaint: Dyspnea/Respdistress Source: Patient Present Illness HPI Patient is a 48-year-old male who presents after increased chest tightness. Reports having onset of symptoms last night. Associated shortness of breath. Prior history of congestive heart failure and AICD placement. Reports having prior [place] x2 a year ago patient denies being a smoker. Denies any drug allergies. Not been having any fever. Reports having prior history of asthma. Patient states he takes Lasix 80 mg a day. Reports urinating normally. Allergies: Coded Allergies: RIVAROXABAN (Verified Allergy, Unknown, 02/22/19) COVID-19 Screening Contact w/high risk pt: No Recent Travel to affected area: No Experienced COVID-19 symptoms?: Yes COVID-19 symptoms experienced: Shortness of Breath Patient History Past Medical History: see triage record, HTN, CHF Reviewed Nursing Documentation: PMH: Agreed; PSxH: Agreed Nursing Documentation-PMH Hx Hypertension: Yes Hx Pacemaker: Yes - ICD on L side Hx Asthma: Yes Hx Diabetes: No Review of Systems All Other Systems: negative except mentioned in HPI Physical Exam Vital Signs Date Time Temp Pulse Resp B/P (MAP) Pulse Ox O2 Delivery O2 Flow Rate FiO2 07/18/19 08:42 97.9 92 19 131/84 (100) 95 Room Air Sp02 EP Interpretation: reviewed, normal General Appearance: normal inspection, well appearing, no apparent distress, alert, GCS 15, Chronically Ill Head: atraumatic ENT: normal ENT inspection, hearing grossly normal, normal voice Neck: normal inspection, full range of motion, supple, no bony tend Respiratory: normal inspection, lungs clear, normal breath sounds, no respiratory distress, no retraction, no wheezing Cardiovascular #1: regular rate, rhythm, no edema Gastrointestinal: normal inspection, normal bowel sounds, non tender, soft, no guarding, no hernia Genitourinary: no CVA tenderness Musculoskeletal: normal inspection, back normal, normal range of motion, swelling Neurologic: alert, responsive, speech normal, normal inspection Psychiatric: normal inspection, judgement/insight normal, mood/affect normal Medical Decision Making Diagnostic Impression: Primary Impression: CHF (congestive heart failure) ER Course Patient present for shortness of breath. Differential included but was not limited to CHF exacerbation, anemia, pneumonia, pneumothorax, myocardial infarction, pericardial effusion, congestive heart failure, acidosis because of complexity of patient's case laboratory tests and imaging studies were ordered. Chest x-ray 1 view interpreted by me showed cardiomegaly with bilateral vascular congestion and pacemaker and AICD placement. Patient was given aspirin as well as Lasix. He was noted to be taking his diuretics but states he may have some new dietary indiscretions which caused this problem. Dr. Devora Zepeda was contacted for panel admission for [facility]. Labs Test 07/18/19 09:00 07/18/19 09:51 White Blood Count 5.2 K/UL (4.8-10.8) Red Blood Count 5.51 M/UL (4.70-6.10) Hemoglobin 15.3 G/DL (14.2-18.0) Hematocrit 50.5 % (42.0-52.0) Mean Corpuscular Volume 92 FL (80-99) Mean Corpuscular Hemoglobin 27.8 PG (27.0-31.0) Mean Corpuscular Hemoglobin Concent 30.3 G/DL (32.0-36.0) Red Cell Distribution Width 16.8 % (11.6-14.8) Platelet Count 245 K/UL (150-450) Mean Platelet Volume 9.9 FL (6.5-10.1) Neutrophils (%) (Auto) 50.7 % (45.0-75.0) Lymphocytes (%) (Auto) 36.0 % (20.0-45.0) Monocytes (%) (Auto) 8.8 % (1.0-10.0) Eosinophils (%) (Auto) 1.6 % (0.0-3.0) Basophils (%) (Auto) 2.9 % (0.0-2.0) D-Dimer 0.37 mg/L FEU (0.00-0.49) Sodium Level 140 MMOL/L (136-145) Potassium Level 3.8 MMOL/L (3.5-5.1) Chloride Level 103 MMOL/L (98-107) Carbon Dioxide Level 28 MMOL/L (21-32) Anion Gap 9 mmol/L (5-15) Blood Urea Nitrogen 10 mg/dL (7-18) Creatinine 1.3 MG/DL (0.55-1.30) Estimat Glomerular Filtration Rate > 60 mL/min (>60) Glucose Level 136 MG/DL (74-106) Calcium Level 8.9 MG/DL (8.5-10.1) Total Bilirubin 0.7 MG/DL (0.2-1.0) Aspartate Amino Transf (AST/SGOT) 44 U/L (15-37) Alanine Aminotransferase (ALT/SGPT) 37 U/L (12-78) Alkaline Phosphatase 58 U/L (46-116) Troponin I 0.033 ng/mL (0.000-0.056) Pro-B-Type Natriuretic Peptide 1307 pg/mL (0-125) Total Protein 8.2 G/DL (6.4-8.2) Albumin 3.7 G/DL (3.4-5.0) Globulin 4.5 g/dL Albumin/Globulin Ratio 0.8 (1.0-2.7) Lipase 177 U/L (73-393) Digoxin Level < 0.2 NG/ML (0.5-2.0) Urine Opiates Screen Negative (NEGATIVE) Urine Barbiturates Screen Negative (NEGATIVE) Phencyclidine (PCP) Screen Negative (NEGATIVE) Urine Amphetamines Screen Negative (NEGATIVE) Urine Benzodiazepines Screen Negative (NEGATIVE) Urine Cocaine Screen Negative (NEGATIVE) Urine Marijuana (THC) Screen Positive (NEGATIVE) Last Vital Signs Date Time Temp Pulse Resp B/P (MAP) Pulse Ox O2 Delivery O2 Flow Rate FiO2 07/18/19 08:42 97.9 92 19 131/84 (100) 95 Room Air Status: unchanged Disposition: ADMITTED INPATIENT Condition: Stable Nico Maxwell MD July 18, 2019 08:52
[2019-07-18] MEDS ORDERED: Aspirin Baby 81mg ORAL ONE (09:00)
[2019-07-18] MEDS ORDERED: LOSARTAN POTASS25 MG ORAL (09:02)
[2019-07-18] MEDS ORDERED: PRADAXA110 MG PO (09:02)
[2019-07-18] MEDS ORDERED: ASPIRIN81 MG ORAL (09:02)
--- NOTE | 2019-07-18 09:15 | NUR ---
ED Nurse Note: Pt walked into ED w/ c/o SOB since last night. Pt also has chest tightness since last night, denies chest pain. Pt lungs are clear bilaterally to auscultation. Pt has history of asthma. Denies coughing, bodyaches, chills. Temp is 98.7F oral. Pt is set up on monitor, EKG taken, blood sent to lab.
--- NOTE | 2019-07-18 09:17 | NUR ---
ED Nurse Note: Pt in isolation room 7.
[2019-07-18 09:38] LABS: BASOPHILS % (AUTO) 2.9 % (0.0-2.0); EOSINOPHILS % (AUTO) 1.6 % (0.0-3.0); HEMATOCRIT 50.5 % (42.0-52.0); HEMOGLOBIN 15.3 G/DL (14.2-18.0); MEAN CORPUSCULAR VOLUME 92 FL (80-99); MONOCYTES % (AUTO) 8.8 % (1.0-10.0); NEUTROPHILS % (AUTO) 50.7 % (45.0-75.0); PLATELET COUNT 245 K/UL (150-450); RED BLOOD COUNT 5.51 M/UL (4.70-6.10); RED CELL DISTRIBUTION WIDTH 16.8 % (11.6-14.8); WHITE BLOOD COUNT 5.2 K/UL (4.8-10.8)
[2019-07-18 09:52] LABS: ALANINE AMINOTRANSFERASE 37 U/L (12-78); ALBUMIN 3.7 G/DL (3.4-5.0); ALBUMIN/GLOBULIN RATIO 0.8 (1.0-2.7); ALKALINE PHOSPHATASE 58 U/L (46-116); ANION GAP 9 mmol/L (5-15); ASPARTATE AMINO TRANSFERASE 44 U/L (15-37); BILIRUBIN,TOTAL 0.7 MG/DL (0.2-1.0); CARBON DIOXIDE 28 MMOL/L (21-32); CHLORIDE 103 MMOL/L (98-107); POTASSIUM 3.8 MMOL/L (3.5-5.1); SODIUM 140 MMOL/L (136-145)
[2019-07-18 10:03] LABS: BLOOD UREA NITROGEN 10 mg/dL (7-18); CREATININE 1.3 MG/DL (0.55-1.30)
[2019-07-18 10:09] LABS: CALCIUM 8.9 MG/DL (8.5-10.1)
--- NOTE | 2019-07-18 11:00 | NUR ---
Note phill in EDM - 07/18/19 at 1335 by [email or web address] ED Nurse Note: Pt states he has leather jacket and phone [employer], but not present in room. CN, security, and tech aware. Will cont to investigate.
--- NOTE | 2019-07-18 12:12 | Diagnostic Imaging Report ---
Indication: Shortness of breath Technique: One view of the chest Comparison: 02/22/2019 Findings: Interim development of bilateral hazy infiltrates versus edema. The heart is enlarged. There is a left chest pacemaker again demonstrated. Impression: Bilateral basilar hazy infiltrates versus edema. Correlate with clinical findings
[2019-07-18] MEDS ORDERED: Milk of Magnesia 30ml Ud ORAL PRN (12:15)
[2019-07-18] MEDS ORDERED: Miralax 17gm pkt ORAL PRN (12:15)
--- NOTE | 2019-07-18 12:20 | General Progress Note ---
Subjective Allergies: Coded Allergies: RIVAROXABAN (Verified Allergy, Unknown, 02/22/19) Objective Last 24 Hour Vital Signs Date Time Temp Pulse Resp B/P (MAP) Pulse Ox O2 Delivery O2 Flow Rate FiO2 07/18/19 09:18 97.9 95 20 136/81 99 Room Air 07/18/19 09:18 95 20 Room Air 99 07/18/19 08:42 97.9 92 19 131/84 (100) 95 Room Air Laboratory Tests 07/18/19 09:00: White Blood Count 5.2, Red Blood Count 5.51, Hemoglobin 15.3, Hematocrit 50.5, Mean Corpuscular Volume 92, Mean Corpuscular Hemoglobin 27.8, Mean Corpuscular Hemoglobin Concent 30.3L, Red Cell Distribution Width 16.8H, Platelet Count 245 , Mean Platelet Volume 9.9, Neutrophils (%) (Auto) 50.7, Lymphocytes (%) (Auto) 36.0, Monocytes (%) (Auto) 8.8, Eosinophils (%) (Auto) 1.6, Basophils (%) (Auto ) 2.9H, D-Dimer 0.37, Sodium Level 140, Potassium Level 3.8, Chloride Level 103 , Carbon Dioxide Level 28, Anion Gap 9, Blood Urea Nitrogen 10, Creatinine 1.3, Estimat Glomerular Filtration Rate > 60, Glucose Level 136H, Calcium Level 8.9, Total Bilirubin 0.7, Aspartate Amino Transf (AST/SGOT) 44H, Alanine Aminotransferase (ALT/SGPT) 37, Alkaline Phosphatase 58, Troponin I 0.033, Pro-B -Type Natriuretic Peptide 1307H, Total Protein 8.2, Albumin 3.7, Globulin 4.5, Albumin/Globulin Ratio 0.8L, Lipase 177, Digoxin Level < 0.2L 07/18/19 09:51: Urine Opiates Screen Negative, Urine Barbiturates Screen Negative, Phencyclidine (PCP) Screen Negative, Urine Amphetamines Screen Negative, Urine Benzodiazepines Screen Negative, Urine Cocaine Screen Negative, Urine Marijuana (THC) Screen PositiveH Height (Feet): 5 Height (Inches): 8.00 Weight (Pounds): 256 Mariela Zepeda M.D. July 18, 2019 12:20
--- NOTE | 2019-07-18 13:00 | History and Physical ---
History of Present Illness General Reason for Hospitalization: Dyspnea/Respdistress Present Illness HPI 48-year-old AAM with PMH of CHF s/p ICD 2019, HTN and previous MIs x2 presents with acute chest tightness and SOB. Patient notes he was in his usual state of health when last night he noted sudden chest tightness. Patient denies any F/C , coughing, N/V, diaphoresis, palpitations or ICD shocks. Patient notes SOB when laying flat to sleep, symptoms improved w/sitting up. Patient also noted worsening b/l LE edema over the last few days. Patient has history of 2 prior MIs in March 2018, states symptoms were similar w/chest tightness and SOB. During that time he had been doing yard work and syncopized. Patient notes over the last couple of days/weeks his diet has been poor, he has been increasing intake of canned/processed foods with high salt content. Pt denies any F/C, WALTERS, vision changes, cough, abdominal pain, N/V, dysuria, hematuria/hematochezia. On admission, patient found to have BNP 1400. Patient admitted for further treatment and evaluation. PMH: CHF s/p ICD 2019, HTN and previous MIs x2 FH: Grandmother with CAD SH: Lives at home with family, denies tobacco/EtOH usage Sx: ICD placement March 2018 Allergies: Rivaroxaban Allergies: Coded Allergies: RIVAROXABAN (Verified Allergy, Unknown, 02/22/19) COVID-19 Screening Contact w/high risk pt: No Recent Travel to affected area: No Experienced COVID-19 symptoms?: Yes COVID-19 symptoms experienced: Shortness of Breath Medication History Scheduled Aspirin* (Aspirin*), 81 MG ORAL DAILY, (Reported) Carvedilol* (Carvedilol*), 50 MG ORAL EVERY 12 HOURS, (Reported) Ciprofloxacin Hcl* (Ciprofloxacin Hcl*), 500 MG ORAL Q12H Cyclobenzaprine Hcl* (Flexeril*), 10 MG ORAL THREE TIMES A DAY Furosemide (Furosemide), 80 MG ORAL DAILY, (Reported) Gabapentin* (Gabapentin*), 400 MG ORAL THREE TIMES A DAY Guaifenesin (Tussin), 100 MG PO QHS Hydrochlorothiazide* (Hydrochlorothiazide*), 50 MG ORAL DAILY, (Reported) Ibuprofen* (Motrin*), 800 MG ORAL THREE TIMES A DAY Losartan Potassium* (Losartan Potassium*), 50 MG ORAL DAILY, (Reported) Losartan Potassium* (Losartan Potassium*), 25 MG ORAL DAILY, (Reported) Methocarbamol* (Robaxin-750*), 750 MG PO TID Metronidazole* (Flagyl*), 500 MG ORAL THREE TIMES A DAY Oseltamivir Phosphate (Tamiflu), 75 MG ORAL TWICE A DAY Scheduled PRN Hydrocodone Bit/Acetaminophen 5-325* (Woody 5-325*), 1 TAB ORAL Q4H PRN for For Pain Hydrocodone Bit/Acetaminophen 5-325* (Woody 5-325*), 1 TAB ORAL Q6H PRN for For Pain Ibuprofen (Motrin), 600 MG ORAL Q6H PRN for For Pain Miscellaneous Medications Dabigatran Etexilate Mesylate (Pradaxa), 150 MG PO, (Reported) Patient History Healthcare decision maker Resuscitation status Advanced Directive on File Review of Systems Constitutional: Denies: no symptoms, see HPI, chills, sweats, fever, malaise, weakness, other Eye: Denies: no symptoms, see HPI, eye pain, blurred vision, tearing, double vision, nose pain, nose congestion, acuity changes, discharge, other ENT: Denies: no symptoms, see HPI, ear pain, ear discharge, nose pain, nose congestion, throat pain, throat swelling, mouth pain, hearing loss, nasal discharge, other Respiratory: Reports: orthopnea, shortness of breath Cardiovascular: Reports: chest pain Gastrointestinal: Denies: no symptoms, see HPI, abdominal pain, constipation, diarrhea, nausea, vomiting, melena, hematemesis, other Genitourinary: Denies: no symptoms, see HPI, discharge, dysuria, frequency, hematuria, pain, retention, incontinence, urgency, vag bleed/dc, other Musculoskeletal: Denies: no symptoms, see HPI, back pain, gout, joint pain, joint swelling, muscle pain, muscle stiffness, other Skin: Denies: no symptoms, see HPI, rash, change in color, change in hair/nails , dryness, lesions, other Psychiatric: Denies: no symptoms, see HPI, prior hx, anxiety, depressed feelings, emotional problems, SI, HI, hallucinations, other Neurological: Denies: no symptoms, see HPI, headache, numbness, paresthesia, seizure, tingling, tremors, focal weakness, syncope, dizziness, other Endocrine: Denies: no symptoms, see HPI, excessive sweating, flushing, intolerance to temperature, increased thirst, increased urine, unexplained weight loss, other Hematologic/Lymphatic: Denies: no symptoms, see HPI, anemia, blood clots, easy bleeding, easy bruising, swollen glands, diathesis, other Physical Exam Physical Exam Narrative General: Obese, NAD, A&O x 3 HEENT: NCAT, EOMi, MMM CV: RRR, no murmurs, rubs, or gallops Pulm: CTAB, No wheezes, rhonchi, or rales, no accessory muscle usage or conversational dyspnea GI: Soft, nontender, nondistended, bowel sounds present Ext: No lower extremity edema bilaterally Skin: no rashes lesions or ulcers Msk: Joints symmetrical in upper extremity and lower extremity bilaterally, no joint swelling. No reproducible tenderness upon anterior chest wall palpation Neuro: CN 2-12 grossly intact bilaterally, no focal signs. Last 24 Hour Vital Signs Date Time Temp Pulse Resp B/P (MAP) Pulse Ox O2 Delivery O2 Flow Rate FiO2 07/18/19 09:18 97.9 95 20 136/81 99 Room Air 07/18/19 09:18 95 20 Room Air 99 07/18/19 08:42 97.9 92 19 131/84 (100) 95 Room Air Laboratory Tests Test 07/18/19 09:00 07/18/19 09:51 07/18/19 12:36 White Blood Count 5.2 K/UL (4.8-10.8) Red Blood Count 5.51 M/UL (4.70-6.10) Hemoglobin 15.3 G/DL (14.2-18.0) Hematocrit 50.5 % (42.0-52.0) Mean Corpuscular Volume 92 FL (80-99) Mean Corpuscular Hemoglobin 27.8 PG (27.0-31.0) Mean Corpuscular Hemoglobin Concent 30.3 G/DL (32.0-36.0) L Red Cell Distribution Width 16.8 % (11.6-14.8) H Platelet Count 245 K/UL (150-450) Mean Platelet Volume 9.9 FL (6.5-10.1) Neutrophils (%) (Auto) 50.7 % (45.0-75.0) Lymphocytes (%) (Auto) 36.0 % (20.0-45.0) Monocytes (%) (Auto) 8.8 % (1.0-10.0) Eosinophils (%) (Auto) 1.6 % (0.0-3.0) Basophils (%) (Auto) 2.9 % (0.0-2.0) H D-Dimer 0.37 mg/L FEU (0.00-0.49) Sodium Level 140 MMOL/L (136-145) Potassium Level 3.8 MMOL/L (3.5-5.1) Chloride Level 103 MMOL/L (98-107) Carbon Dioxide Level 28 MMOL/L (21-32) Anion Gap 9 mmol/L (5-15) Blood Urea Nitrogen 10 mg/dL (7-18) Creatinine 1.3 MG/DL (0.55-1.30) Estimat Glomerular Filtration Rate > 60 mL/min (>60) Glucose Level 136 MG/DL (74-106) H Calcium Level 8.9 MG/DL (8.5-10.1) Total Bilirubin 0.7 MG/DL (0.2-1.0) Aspartate Amino Transf (AST/SGOT) 44 U/L (15-37) H Alanine Aminotransferase (ALT/SGPT) 37 U/L (12-78) Alkaline Phosphatase 58 U/L (46-116) Troponin I 0.033 ng/mL (0.000-0.056) Pending Pro-B-Type Natriuretic Peptide 1307 pg/mL (0-125) H Total Protein 8.2 G/DL (6.4-8.2) Albumin 3.7 G/DL (3.4-5.0) Globulin 4.5 g/dL Albumin/Globulin Ratio 0.8 (1.0-2.7) L Lipase 177 U/L (73-393) Digoxin Level < 0.2 NG/ML (0.5-2.0) L Urine Opiates Screen Negative (NEGATIVE) Urine Barbiturates Screen Negative (NEGATIVE) Phencyclidine (PCP) Screen Negative (NEGATIVE) Urine Amphetamines Screen Negative (NEGATIVE) Urine Benzodiazepines Screen Negative (NEGATIVE) Urine Cocaine Screen Negative (NEGATIVE) Urine Marijuana (THC) Screen Positive (NEGATIVE) H Height (Feet): 5 Height (Inches): 8.00 Weight (Pounds): 256 Medications Current Medications Medications (Trade) Dose Ordered Sig/Corrie Route PRN Reason Start Time Stop Time Status Last Admin Dose Admin Acetaminophen (Tylenol) 650 mg Q4H PRN ORAL Mild Pain (Pain Scale 1-3) 07/18/19 12:15 08/17/19 12:14 Acetaminophen (Tylenol) 650 mg Q4H PRN ORAL Temp >100.5 07/18/19 12:15 08/17/19 12:14 Bisacodyl (Dulcolax) 10 mg DAILYPRN PRN RECTAL Constipation 07/18/19 12:15 10/16/19 12:14 Dextrose (Dextrose 50%) 25 ml Q30M PRN IV Hypoglycemia 07/18/19 12:15 10/16/19 12:14 Dextrose (Dextrose 50%) 50 ml Q30M PRN IV Hypoglycemia 07/18/19 12:15 10/16/19 12:14 Docusate Sodium (Colace) 100 mg EVERY 12 HOURS ORAL 07/18/19 21:00 08/17/19 20:59 Enoxaparin Sodium (Lovenox) 40 mg Q24H SUBQ 07/18/19 14:00 10/16/19 13:59 Furosemide (Lasix) 40 mg BID IV 07/18/19 18:00 08/17/19 17:59 Magnesium Hydroxide (Mom) 30 ml HSPRN PRN ORAL Constipation 07/18/19 12:15 08/17/19 12:14 Polyethylene Glycol (Miralax) 17 gm DAILYPRN PRN ORAL Constipation 07/18/19 12:15 08/17/19 12:14 Assessment/Plan Assessment/Plan: 48-year-old AAM with PMH of CHF s/p ICD 2019, HTN and previous MIs x2 presents with acute chest tightness and SOB. On admission, patient found to have BNP 1400. #Chest Pain likely 2/2 #Acute on chronic systolic heart failure HFrEF #Elevated BNP -admit to tele -rule out ACS -last echo in august 2018 per , EF 25% -BNP 1400 on admission -CXR b/l basilar hazy infiltrates vs edema -EKG w/LBBB -trop negative x1, ctm -s/p lasix in ED -cont. home meds, ASA, dabigatran/Pradaxa -2d echo ordered -cont. lasix 40 mg IV BID -daily weights, I's and O's -obtain records from [facility] -cardio consulted, recs appreciated #HTN -cont. home meds losartan 25 mg, carvedilol 25 mg BID -lasix as above #Hx Asthma -ctm DVT PPx: Pradaxa 150 mg Time spent on encounter: 70 mins, 35 mins spent on counseling pt and pt's , Bipin, over the phone, coordination of care w/RN and Cardiology, Dr Valencia. Time of note doesn't reflect time of encounter. Mariela Zepeda M.D. July 18, 2019 13:00
[2019-07-18] MEDS ORDERED: Enoxaparin 40mg Inj SUBQ SCH (14:00)
--- NOTE | 2019-07-18 14:19 | Cardiac Electrophysiology PN ---
Subjective Subjective [id number] Objective Last 24 Hour Vital Signs Date Time Temp Pulse Resp B/P (MAP) Pulse Ox O2 Delivery O2 Flow Rate FiO2 07/18/19 09:18 97.9 95 20 136/81 99 Room Air 07/18/19 09:18 95 20 Room Air 99 07/18/19 08:42 97.9 92 19 131/84 (100) 95 Room Air Laboratory Tests Test 07/18/19 09:00 07/18/19 09:51 07/18/19 12:36 White Blood Count 5.2 K/UL (4.8-10.8) Red Blood Count 5.51 M/UL (4.70-6.10) Hemoglobin 15.3 G/DL (14.2-18.0) Hematocrit 50.5 % (42.0-52.0) Mean Corpuscular Volume 92 FL (80-99) Mean Corpuscular Hemoglobin 27.8 PG (27.0-31.0) Mean Corpuscular Hemoglobin Concent 30.3 G/DL (32.0-36.0) L Red Cell Distribution Width 16.8 % (11.6-14.8) H Platelet Count 245 K/UL (150-450) Mean Platelet Volume 9.9 FL (6.5-10.1) Neutrophils (%) (Auto) 50.7 % (45.0-75.0) Lymphocytes (%) (Auto) 36.0 % (20.0-45.0) Monocytes (%) (Auto) 8.8 % (1.0-10.0) Eosinophils (%) (Auto) 1.6 % (0.0-3.0) Basophils (%) (Auto) 2.9 % (0.0-2.0) H D-Dimer 0.37 mg/L FEU (0.00-0.49) Sodium Level 140 MMOL/L (136-145) Potassium Level 3.8 MMOL/L (3.5-5.1) Chloride Level 103 MMOL/L (98-107) Carbon Dioxide Level 28 MMOL/L (21-32) Anion Gap 9 mmol/L (5-15) Blood Urea Nitrogen 10 mg/dL (7-18) Creatinine 1.3 MG/DL (0.55-1.30) Estimat Glomerular Filtration Rate > 60 mL/min (>60) Glucose Level 136 MG/DL (74-106) H Calcium Level 8.9 MG/DL (8.5-10.1) Total Bilirubin 0.7 MG/DL (0.2-1.0) Aspartate Amino Transf (AST/SGOT) 44 U/L (15-37) H Alanine Aminotransferase (ALT/SGPT) 37 U/L (12-78) Alkaline Phosphatase 58 U/L (46-116) Troponin I 0.033 ng/mL (0.000-0.056) 0.045 ng/mL (0.000-0.056) Pro-B-Type Natriuretic Peptide 1307 pg/mL (0-125) H Total Protein 8.2 G/DL (6.4-8.2) Albumin 3.7 G/DL (3.4-5.0) Globulin 4.5 g/dL Albumin/Globulin Ratio 0.8 (1.0-2.7) L Lipase 177 U/L (73-393) Digoxin Level < 0.2 NG/ML (0.5-2.0) L Urine Opiates Screen Negative (NEGATIVE) Urine Barbiturates Screen Negative (NEGATIVE) Phencyclidine (PCP) Screen Negative (NEGATIVE) Urine Amphetamines Screen Negative (NEGATIVE) Urine Benzodiazepines Screen Negative (NEGATIVE) Urine Cocaine Screen Negative (NEGATIVE) Urine Marijuana (THC) Screen Positive (NEGATIVE) Jaime Tucker MD July 18, 2019 14:19
--- NOTE | 2019-07-18 14:57 | NUR ---
Note phill in EDM - 07/18/19 at 1458 by SCOTTERMANArtemio ED Nurse Note: LIZABETH aware that BP is 181/103.
--- NOTE | 2019-07-18 14:57 | NUR ---
ED Nurse Note: ERMD aware that BP is 181/103.
--- NOTE | 2019-07-18 19:10 | NUR ---
HAND-OFF: Report given to SREE Huynh.
--- NOTE | 2019-07-18 19:17 | NUR ---
ED Nurse Note: Report received from SREE Nicolas. Patient resting in bed, no acute distress noted.
--- NOTE | 2019-07-18 20:44 | Consultation ---
DATE OF CONSULTATION: 07/18/2019 CARDIOLOGY CONSULTATION REASON FOR CONSULTATION: Evaluation of the patient's defibrillator and management of congestive heart failure. HISTORY OF PRESENT ILLNESS: The patient is a 48-year-old gentleman with hypertension and severe cardiomyopathy, who underwent a defibrillator implantation in March 2018 at [facility] as well as prior myocardial infarction, presented to the emergency room for increasing shortness of breath and lower extremity edema. The patient states that he has not been able to get a hold of his primary care doctor, has been able to get couple of his heart failure medications. The patient denies any fever, cough, nausea, vomiting, or defibrillator discharges. The patient has severe orthopnea and severe increasing lower extremity edema. At the time of my evaluation in the emergency room, the patient is still short of breath and still has severe bilateral extremity edema. A 2D echocardiogram at bedside showed ejection fraction of 10% to 15%. REVIEW OF SYSTEMS: Negative other than what is mentioned in the history of present illness. PAST MEDICAL HISTORY: As mentioned above. FAMILY HISTORY: Noncontributory. SOCIAL HISTORY: He lives at home with the family. Does not smoke or drink alcohol. ALLERGIES: He is allergic to Xarelto. MEDICATIONS: Per reconciliation. PHYSICAL EXAMINATION: VITAL SIGNS: Show blood pressure of 136/81, pulse is 95, respirations 18, and temperature 97.9. HEAD AND NECK: Show no JVD. LUNGS: Clear. CARDIOVASCULAR: Shows regular S1 and S2 with no gallop or murmur. Defibrillator is in left subclavian. ABDOMEN: Soft. EXTREMITIES: 2+ pitting edema. LABORATORY AND DIAGNOSTIC DATA: His labs show white count of 5.2, hemoglobin 15.2, hematocrit of 50, platelet count 245. Sodium 140, potassium 3.8, BUN of 10, creatinine 1.3, and glucose of 136. Troponin negative x2. ASSESSMENT AND PLAN: 1. Exacerbation of congestive heart failure. His BNP is more than 1300. We will start him on Lasix 40 mg IV b.i.d. Echocardiogram showed EF of only 10% to 15%. We will start him on his home medications also including Coreg 25 mg b.i.d. and losartan 50 mg daily as well. 2. Status post defibrillator. The patient does not know the brand. We will try to find the brand of the defibrillator and interrogate that. 3. History of paroxysmal atrial fibrillation, on Pradaxa 150 mg b.i.d. as well as Coreg 25 mg b.i.d. 4. Hypertension. Continue current heart failure therapy. Thank you very much for allowing me to participate in the care of this patient. Please do not hesitate to contact me for any questions regarding my evaluation. Jaime Valencia M.D. DR: Kevin JOB#: [id number] CC:
[2019-07-18] MEDS: Docusate 100mg cap ORAL SCH (20:56)
[2019-07-18] MEDS: Dabigatran 150mg cap ORAL SCH (20:56)
[2019-07-18] MEDS: Carvedilol 25mg Tab ORAL SCH (20:57)
--- NOTE | 2019-07-18 22:02 | NUR ---
ED Nurse Note: Patient bed changed into jason bed.
--- NOTE | 2019-07-19 00:16 | NUR ---
ED Nurse Note: Report given to SREE Brannon in tele.
--- NOTE | 2019-07-19 00:45 | NUR ---
TRANSFER TO FLOOR: Patient transferred to telemetry as ordered, per ERMD. Report given to SREE Brannon. Patient transported via gurney on ACLS protocol with core java engineer accompanied by 1 RN and aviation technician in stable condition.
--- NOTE | 2019-07-19 01:50 | NUR ---
NURSE NOTES: Received patient report from JACOB Palm RN. Patient transferred from ER to telemetry floor without incident. Patient AOx 4, shows no signs of acute distress or pain at the time. Patient is on Room air O2 saturation is at 97%. He has bilateral lower extremity swelling +2. IV is patent and flushed. There is no signs of erythema, infiltration, or bleeding at the time. Bed in the lowest position, call light within reach, side rails up x 2, and bed brakes on. Will continue plan of care.
--- NOTE | 2019-07-19 02:00 | NUR ---
NURSE NOTES: Patient had an episode of 29 beats of V tach, then a few minutes later he had [address] Valencia was informed.
[2019-07-19 04:00] VITALS: BP 120/68
--- NOTE | 2019-07-19 07:30 | NUR ---
NURSE NOTES: Received patient A/A/Ox 4, ambulates with a steady gait. No acute resp distress noted. Noted as BLE +2 pitting edema. IV site is patent and intact. Bed in the lowest position, call light within reach, siderails up x 2, and brakes and locked engaged. Will continue plan of care.
--- NOTE | 2019-07-19 07:53 | NUR ---
HAND-OFF: Report given to SREE Carreon.Patient shows no signs of distress at the time. Endorsed plan of care.
[2019-07-19 08:00] VITALS: BP 124/89
[2019-07-19] MEDS: Losartan 25mg tab ORAL SCH (09:18)
[2019-07-19] MEDS: Docusate 100mg cap ORAL SCH ×2 (09:18→21:20)
[2019-07-19] MEDS: Aspirin Baby 81mg ORAL SCH (09:18)
[2019-07-19] MEDS: Dabigatran 150mg cap ORAL SCH ×2 (09:18→21:20)
[2019-07-19] MEDS: Carvedilol 25mg Tab ORAL SCH ×2 (09:19→21:20)
--- NOTE | 2019-07-19 09:30 | General Progress Note ---
Assessment/Plan Assessment/Plan: 48-year-old AAM with PMH of CHF s/p ICD 2019, HTN and previous MIs x2 presents with acute chest tightness and SOB. On admission, patient found to have BNP 1400. #Chest Pain likely 2/2 #Acute on chronic systolic heart failure HFrEF #Elevated BNP -cont. in-pt medical care -ACS ruled out, trops mildly elevated 2/2 acute on chronic CHF exacerbation -BNP 1400 on admission -CXR b/l basilar hazy infiltrates vs edema -EKG w/LBBB -TTE EF 10-15% -daily weights, I's and O's -cont. home meds, coreg, losartan -cont. lasix 40 mg IV BID -obtain records from [facility] -cardio consulted - pending PPM brand and interrogation #Pafib -cont. home pradaxa, coreg 25 mg BID #HTN -cont. home meds losartan 25 mg, carvedilol 25 mg BID -lasix as above #Hx Asthma -ctm DVT PPx: Pradaxa 150 mg Time spent on encounter: 36 mins, 22 mins spent on counseling, coordination of care. D/w pt, Dr. Valencia, RN. Time of note doesn't reflect time of encounter. Subjective Allergies: Coded Allergies: RIVAROXABAN (Verified Allergy, Unknown, 02/22/19) Objective Last 24 Hour Vital Signs Date Time Temp Pulse Resp B/P (MAP) Pulse Ox O2 Delivery O2 Flow Rate FiO2 07/19/19 09:19 84 124/89 07/19/19 09:18 124/89 07/19/19 08:00 98.0 84 20 124/89 (101) 98 07/19/19 04:00 97.5 65 17 120/68 (85) 96 07/19/19 04:00 86 07/19/19 00:45 98.2 78 20 129/93 99 Room Air 07/19/19 00:32 Room Air 07/18/19 23:44 89 17 125/109 98 Room Air 07/18/19 21:05 93 13 111/70 96 Room Air 07/18/19 20:57 93 111/70 07/18/19 19:16 114 19 115/66 98 Room Air 07/18/19 16:53 97.9 86 17 126/76 99 Room Air 07/18/19 14:05 97.9 91 21 137/81 100 Room Air 07/18/19 11:30 97.9 90 19 133/80 98 Room Air Intake and Output 07/18/19 07/19/19 19:00 07:00 Intake Total 0 ml 100 ml Output Total 1100 ml Balance -1100 ml 100 ml Intake Oral 0 ml 100 ml Output Urine Total 1100 ml # Voids 1 Laboratory Tests 07/18/19 09:51: Urine Opiates Screen Negative, Urine Barbiturates Screen Negative, Phencyclidine (PCP) Screen Negative, Urine Amphetamines Screen Negative, Urine Benzodiazepines Screen Negative, Urine Cocaine Screen Negative, Urine Marijuana (THC) Screen PositiveH 07/18/19 12:36: Troponin I 0.045 Height (Feet): 5 Height (Inches): 8.00 Weight (Pounds): 267 Mariela Zepeda M.D. July 19, 2019 09:30
[2019-07-19 09:51] LABS: BASOPHILS % (AUTO) 2.4 % (0.0-2.0); EOSINOPHILS % (AUTO) 1.6 % (0.0-3.0); HEMATOCRIT 46.9 % (42.0-52.0); HEMOGLOBIN 15.7 G/DL (14.2-18.0); LYMPHOCYTES % (AUTO) 33.6 % (20.0-45.0); MEAN CORPUSCULAR VOLUME 86 FL (80-99); MONOCYTES % (AUTO) 13.5 % (1.0-10.0); NEUTROPHILS % (AUTO) 48.9 % (45.0-75.0); PLATELET COUNT 247 K/UL (150-450); RED BLOOD COUNT 5.47 M/UL (4.70-6.10); RED CELL DISTRIBUTION WIDTH 14.6 % (11.6-14.8); WHITE BLOOD COUNT 5.6 K/UL (4.8-10.8)
--- NOTE | 2019-07-19 09:59 | NUR ---
*-* NO INSURANCE INFORMATION IN THE BAR UNABLE TO SEND CLINICALS OR REVIEWS *-*
--- NOTE | 2019-07-19 09:59 | NUR ---
*-* INSURANCE *-* ALL CLINICALS AND REVIEWS HAVE BEEN FAXED TO: MINI SERRANO NCM:SYED #[phone] ext [phone] P: [phone] Depilatory Painter Sanchez Carrillo [phone]
[2019-07-19 10:04] LABS: ANION GAP 7 mmol/L (5-15); BLOOD UREA NITROGEN 12 mg/dL (7-18); CALCIUM 8.6 MG/DL (8.5-10.1); CARBON DIOXIDE 31 MMOL/L (21-32); CHLORIDE 102 MMOL/L (98-107); CREATININE 1.3 MG/DL (0.55-1.30); POTASSIUM 3.6 MMOL/L (3.5-5.1); SODIUM 140 MMOL/L (136-145)
--- NOTE | 2019-07-19 10:37 | NUR ---
CASE MANAGEMENT:REVIEW 48 YR OLD MALE WALKED IN TO OUR ER CC: SOB AND CHEST TIGHTNESS PMH: ASTHMA SI: CHF EXACERBATION 97.8 92 19 131/84 95% ON RA BNP+1307 TROPONIN(-) X2 URINE(+) THC IS: ASA PO IV LASIX CHEST XRAY : TO TELEMETRY IS: IV LASIX BID COZAAR PO QD ASA PO QD COREG PO Q12
--- NOTE | 2019-07-19 10:57 | Cardiac Electrophysiology PN ---
Assessment/Plan Assessment/Plan 1. Exacerbation of congestive heart failure. His BNP is more than 1300. Echocardiogram showed EF of only 10% to 15%. On Coreg 25 mg b.i.d., losartan 50 mg daily and Lasix 40 mg IV b.i.d. 2. Status post ICD 03/2018 . The patient does not know the brand. We will try to find the brand of the defibrillator and interrogate that. 3. History of paroxysmal atrial fibrillation, on Pradaxa 150 mg b.i.d. as well as Coreg 25 mg b.i.d. 4. Hypertension. Continue current heart failure therapy. Subjective Subjective Feeling better with diuresis. EF 15-20%. Objective Last 24 Hour Vital Signs Date Time Temp Pulse Resp B/P (MAP) Pulse Ox O2 Delivery O2 Flow Rate FiO2 07/19/19 09:19 84 124/89 07/19/19 09:18 124/89 07/19/19 08:00 98.0 84 20 124/89 (101) 98 07/19/19 04:00 97.5 65 17 120/68 (85) 96 07/19/19 04:00 86 07/19/19 00:45 98.2 78 20 129/93 99 Room Air 07/19/19 00:32 Room Air 07/18/19 23:44 89 17 125/109 98 Room Air 07/18/19 21:05 93 13 111/70 96 Room Air 07/18/19 20:57 93 111/70 07/18/19 19:16 114 19 115/66 98 Room Air 07/18/19 16:53 97.9 86 17 126/76 99 Room Air 07/18/19 14:05 97.9 91 21 137/81 100 Room Air 07/18/19 11:30 97.9 90 19 133/80 98 Room Air Intake and Output 07/18/19 07/19/19 19:00 07:00 Intake Total 0 ml 100 ml Output Total 1100 ml Balance -1100 ml 100 ml Intake Oral 0 ml 100 ml Output Urine Total 1100 ml # Voids 1 Laboratory Tests Test 07/18/19 12:36 07/19/19 09:15 Troponin I 0.045 ng/mL (0.000-0.056) 0.042 ng/mL (0.000-0.056) White Blood Count 5.6 K/UL (4.8-10.8) Red Blood Count 5.47 M/UL (4.70-6.10) Hemoglobin 15.7 G/DL (14.2-18.0) Hematocrit 46.9 % (42.0-52.0) Mean Corpuscular Volume 86 FL (80-99) Mean Corpuscular Hemoglobin 28.7 PG (27.0-31.0) Mean Corpuscular Hemoglobin Concent 33.4 G/DL (32.0-36.0) Red Cell Distribution Width 14.6 % (11.6-14.8) Platelet Count 247 K/UL (150-450) Mean Platelet Volume 8.0 FL (6.5-10.1) Neutrophils (%) (Auto) 48.9 % (45.0-75.0) Lymphocytes (%) (Auto) 33.6 % (20.0-45.0) Monocytes (%) (Auto) 13.5 % (1.0-10.0) H Eosinophils (%) (Auto) 1.6 % (0.0-3.0) Basophils (%) (Auto) 2.4 % (0.0-2.0) H Sodium Level 140 MMOL/L (136-145) Potassium Level 3.6 MMOL/L (3.5-5.1) Chloride Level 102 MMOL/L (98-107) Carbon Dioxide Level 31 MMOL/L (21-32) Anion Gap 7 mmol/L (5-15) Blood Urea Nitrogen 12 mg/dL (7-18) Creatinine 1.3 MG/DL (0.55-1.30) Estimat Glomerular Filtration Rate > 60 mL/min (>60) Glucose Level 119 MG/DL (74-106) H Calcium Level 8.6 MG/DL (8.5-10.1) Pro-B-Type Natriuretic Peptide 1055 pg/mL (0-125) H Objective HEAD AND NECK: Show no JVD. LUNGS: Clear. CARDIOVASCULAR: Shows regular S1 and S2 with no gallop or murmur. Defibrillator is in left subclavian. ABDOMEN: Soft. EXTREMITIES: 2+ pitting edema. Jaime Valencia MD July 19, 2019 10:57
[2019-07-19 12:01] VITALS: BP 107/74
--- NOTE | 2019-07-19 13:57 | NUR ---
P.T Note: P.T evaluation completed. Pt is independent in all aspects of ADL/functional mobilities and gait/locomotion. Pt's current functional status does not warrant skilled P.T service at this time. DC P.T service. Thank you for this referral.
--- NOTE | 2019-07-19 14:04 | NUR ---
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 awaits for a call back.
[2019-07-19 16:00] VITALS: BP 125/74
--- NOTE | 2019-07-19 16:26 | NUR ---
NURSE NOTES: faxed release info to [facility] medical records regarding PMD request to [phone]. tel. [phone]. Informed Dr. Zepeda. will cont to monitor.
--- NOTE | 2019-07-19 19:16 | NUR ---
HAND-OFF: Report given to Debra.
--- NOTE | 2019-07-19 19:18 | NUR ---
NURSE NOTES: Received report from SREE Carreon. Initial rounding done. pt AAOX4, ambulating in room w/ steady gait. no SOB or cough noted. no further needs verbalized at the moment. will f/u scheduled meds. call light w/in reach.
[2019-07-19 20:00] VITALS: BP 108/74
[2019-07-20] VITALS: BP 113/66
[2019-07-20 04:00] VITALS: BP 111/59
--- NOTE | 2019-07-20 07:40 | NUR ---
HAND-OFF: Report given to SREE Osorio.
[2019-07-20 08:00] VITALS: BP 109/64
--- NOTE | 2019-07-20 08:00 | NUR ---
NURSE NOTES: Patient stable, AOx4 with no complaints and no s/sx of distress or pain. RR even and unlabored on RA. Finished breakfast and is sitting in chair watching TV. Side rails up x2, call light within reach. Bed low and locked. Will continue to monitor.
[2019-07-20 08:04] LABS: BASOPHILS % (AUTO) 1.7 % (0.0-2.0); EOSINOPHILS % (AUTO) 2.1 % (0.0-3.0); HEMATOCRIT 49.5 % (42.0-52.0); HEMOGLOBIN 16.5 G/DL (14.2-18.0); LYMPHOCYTES % (AUTO) 36.1 % (20.0-45.0); MEAN CORPUSCULAR VOLUME 86 FL (80-99); MONOCYTES % (AUTO) 13.3 % (1.0-10.0); NEUTROPHILS % (AUTO) 46.8 % (45.0-75.0); PLATELET COUNT 261 K/UL (150-450); RED BLOOD COUNT 5.75 M/UL (4.70-6.10); RED CELL DISTRIBUTION WIDTH 14.8 % (11.6-14.8); WHITE BLOOD COUNT 5.5 K/UL (4.8-10.8)
[2019-07-20 08:11] LABS: ANION GAP 10 mmol/L (5-15); BLOOD UREA NITROGEN 11 mg/dL (7-18); CARBON DIOXIDE 29 MMOL/L (21-32); CHLORIDE 101 MMOL/L (98-107); CREATININE 1.3 MG/DL (0.55-1.30); POTASSIUM 3.5 MMOL/L (3.5-5.1); SODIUM 140 MMOL/L (136-145)
[2019-07-20] MEDS: Carvedilol 25mg Tab ORAL SCH ×2 (09:00→20:50)
--- NOTE | 2019-07-20 09:39 | General Progress Note ---
Assessment/Plan Assessment/Plan: 48-year-old AAM with PMH of CHF s/p ICD 2019, HTN and previous MIs x2 presents with acute chest tightness and SOB. On admission, patient found to have BNP 1400. #Chest Pain likely 2/2 #Acute on chronic systolic heart failure HFrEF #Elevated BNP #Pafib #Vtach -cont. in-pt medical care -ACS ruled out, trops mildly elevated 2/2 acute on chronic CHF exacerbation -BNP 1400 on admission -CXR b/l basilar hazy infiltrates vs edema -TTE EF 10-15% -daily weights, I's and O's -cont. home meds, coreg, losartan -cont. lasix 40 mg IV BID -cont. home pradaxa, coreg 25 mg BID -pt with 30 seconds of v tach overnight -d/w cardio - start amio, will watch overnight to ensure pt can tolerate meds and no further episodes -monitor and replace electrolytes #HTN -cont. home meds losartan 25 mg, carvedilol 25 mg BID -lasix as above #Hx Asthma -ctm DVT PPx: Pradaxa 150 mg Time spent on encounter: 65 mins, 17 mins spent on coordination of care. D/w Dr. Valencia, and RN. 30 mins of time spent with pt counseling and family counseling on pt's condition , plan of care and medication adjustment. Time of note doesn't reflect time of encounter. Subjective Allergies: Coded Allergies: RIVAROXABAN (Verified Allergy, Unknown, 02/22/19) Subjective F/u for CHF exacerbation. Pt w/multiple episodes of Vtach overnight, longest 30 seconds, no shocks. Pt denies any CP, SOB, palpitations, states he feels much better compared to admission and wishes to go home. Objective Last 24 Hour Vital Signs Date Time Temp Pulse Resp B/P (MAP) Pulse Ox O2 Delivery O2 Flow Rate FiO2 07/20/19 08:00 97.7 67 21 109/64 (79) 95 07/20/19 04:00 76 07/20/19 04:00 Room Air 07/20/19 04:00 97.2 70 18 111/59 (76) 98 07/20/19 00:00 Room Air 07/20/19 00:00 96.4 72 18 113/66 (82) 99 07/20/19 00:00 74 07/19/19 21:20 79 108/74 07/19/19 21:00 Room Air 07/19/19 20:00 97.9 79 18 108/74 (85) 97 07/19/19 16:00 98.2 85 20 125/74 (91) 98 07/19/19 16:00 84 07/19/19 12:01 97.2 83 20 107/74 (85) 100 07/19/19 12:00 76 07/19/19 09:59 Room Air Intake and Output 07/19/19 07/20/19 19:00 07:00 Intake Total 324 ml 500 ml Output Total 600 ml Balance -276 ml 500 ml Intake Oral 324 ml 500 ml Output Urine Total 600 ml # Voids 1 3 Laboratory Tests 07/20/19 07:10: White Blood Count 5.5, Red Blood Count 5.75, Hemoglobin 16.5, Hematocrit 49.5, Mean Corpuscular Volume 86, Mean Corpuscular Hemoglobin 28.7, Mean Corpuscular Hemoglobin Concent 33.3, Red Cell Distribution Width 14.8, Platelet Count 261, Mean Platelet Volume 8.0, Neutrophils (%) (Auto) 46.8, Lymphocytes (%) (Auto) 36.1, Monocytes (%) (Auto) 13.3H, Eosinophils (%) (Auto) 2.1, Basophils (%) ( Auto) 1.7, Sodium Level 140, Potassium Level 3.5, Chloride Level 101, Carbon Dioxide Level 29, Anion Gap 10, Blood Urea Nitrogen 11, Creatinine 1.3, Estimat Glomerular Filtration Rate > 60, Glucose Level 106, Calcium Level 9.0 Height (Feet): 5 Height (Inches): 8.00 Weight (Pounds): 272 Objective General: NAD, A&O x 3, ambulating in room HEENT: NCAT, EOMi, MMM CV: RRR, no murmurs, rubs, or gallops Pulm: CTAB, No wheezes, rhonchi, or rales, no accessory muscle usage or conversational dyspnea GI: Soft, nontender, nondistended, bowel sounds present Ext: No lower extremity edema bilaterally Skin: no rashes lesions or ulcers Mariela Zepeda M.D. July 20, 2019 09:39
--- NOTE | 2019-07-20 10:00 | NUR ---
NURSE NOTES: Patient experienced > 30 seconds of ventricular tachycardia. Dr. Muniz aware and per MD, he will start patient on amiodorone.
[2019-07-20] MEDS: Aspirin Baby 81mg ORAL SCH (10:01)
[2019-07-20] MEDS: Docusate 100mg cap ORAL SCH ×2 (10:01→20:50)
[2019-07-20] MEDS: Losartan 25mg tab ORAL SCH (10:05)
[2019-07-20] MEDS: Dabigatran 150mg cap ORAL SCH ×2 (10:07→20:49)
--- NOTE | 2019-07-20 11:03 | NUR ---
CASE MANAGEMENT:REVIEW 07/20/19 SI: AC/CHR HF W/EF 15%. CHEST PAIN. HAS ICD 97.7 67 21 109/64 95% ON RA IS: ASA PO QD COZAAR PO QD COREG PO Q12 PRADAXA PO Q12 IV LASIX BID : TELEMETRY STATUS DCP: FROM HOME PLAN; CONTINUE TO DIURESIS
--- NOTE | 2019-07-20 11:37 | Cardiac Electrophysiology PN ---
Assessment/Plan Assessment/Plan 1. Exacerbation of congestive heart failure. His BNP is more than 1300. Echocardiogram showed EF of only 10% to 15%. On Coreg 25 mg b.i.d., losartan 50 mg daily and Lasix 40 mg IV b.i.d. 2. Status post [employer] ICD 03/2018 . Interrogation showed nl fx with episodes of atrial fib and VT 3. History of paroxysmal atrial fibrillation, on Pradaxa 150 mg b.i.d. as well as Coreg 25 mg b.i.d. Add Amiodarone 400 daily 4. Hypertension. Continue current heart failure therapy. Subjective Subjective Feeling better with diuresis. EF 15-20%.Had multiple episodes of VT as long as 30 seconds overnight but no shocks Objective Last 24 Hour Vital Signs Date Time Temp Pulse Resp B/P (MAP) Pulse Ox O2 Delivery O2 Flow Rate FiO2 07/20/19 10:05 109/64 07/20/19 09:00 67 109/64 07/20/19 08:00 97.7 67 21 109/64 (79) 95 07/20/19 04:00 76 07/20/19 04:00 Room Air 07/20/19 04:00 97.2 70 18 111/59 (76) 98 07/20/19 00:00 Room Air 07/20/19 00:00 96.4 72 18 113/66 (82) 99 07/20/19 00:00 74 07/19/19 21:20 79 108/74 07/19/19 21:00 Room Air 07/19/19 20:00 97.9 79 18 108/74 (85) 97 07/19/19 16:00 98.2 85 20 125/74 (91) 98 07/19/19 16:00 84 07/19/19 12:01 97.2 83 20 107/74 (85) 100 07/19/19 12:00 76 Intake and Output 07/19/19 07/20/19 19:00 07:00 Intake Total 324 ml 500 ml Output Total 600 ml Balance -276 ml 500 ml Intake Oral 324 ml 500 ml Output Urine Total 600 ml # Voids 1 3 Laboratory Tests Test 07/20/19 07:10 White Blood Count 5.5 K/UL (4.8-10.8) Red Blood Count 5.75 M/UL (4.70-6.10) Hemoglobin 16.5 G/DL (14.2-18.0) Hematocrit 49.5 % (42.0-52.0) Mean Corpuscular Volume 86 FL (80-99) Mean Corpuscular Hemoglobin 28.7 PG (27.0-31.0) Mean Corpuscular Hemoglobin Concent 33.3 G/DL (32.0-36.0) Red Cell Distribution Width 14.8 % (11.6-14.8) Platelet Count 261 K/UL (150-450) Mean Platelet Volume 8.0 FL (6.5-10.1) Neutrophils (%) (Auto) 46.8 % (45.0-75.0) Lymphocytes (%) (Auto) 36.1 % (20.0-45.0) Monocytes (%) (Auto) 13.3 % (1.0-10.0) H Eosinophils (%) (Auto) 2.1 % (0.0-3.0) Basophils (%) (Auto) 1.7 % (0.0-2.0) Sodium Level 140 MMOL/L (136-145) Potassium Level 3.5 MMOL/L (3.5-5.1) Chloride Level 101 MMOL/L (98-107) Carbon Dioxide Level 29 MMOL/L (21-32) Anion Gap 10 mmol/L (5-15) Blood Urea Nitrogen 11 mg/dL (7-18) Creatinine 1.3 MG/DL (0.55-1.30) Estimat Glomerular Filtration Rate > 60 mL/min (>60) Glucose Level 106 MG/DL (74-106) Calcium Level 9.0 MG/DL (8.5-10.1) Objective HEAD AND NECK: Show no JVD. LUNGS: Clear. CARDIOVASCULAR: Shows regular S1 and S2 with no gallop or murmur. Defibrillator is in left subclavian. ABDOMEN: Soft. EXTREMITIES: 2+ pitting edema. Jaime Valencia MD July 20, 2019 11:37
[2019-07-20 12:00] VITALS: BP 135/72
--- NOTE | 2019-07-20 14:49 | NUR ---
*-* INSURANCE *-* ALL CLINICALS AND REVIEWS HAVE BEEN FAXED TO: [facility]:SYED P: [phone]
[2019-07-20 16:00] VITALS: BP 130/72
--- NOTE | 2019-07-20 19:30 | NUR ---
NURSE NOTES:Received patient, ambulating in the hallway, vs stable, no distress, in sinus rhythm with !st degree Avb, at this time. 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
[2019-07-20 20:00] VITALS: BP 110/87
--- NOTE | 2019-07-20 20:10 | NUR ---
HAND-OFF: Report given to BAIRON SHUKLA RN. Patient stable. Plan of care endorsed.
[2019-07-20] MEDS: Amiodarone 200mg tab ORAL SCH (20:49)
[2019-07-21] VITALS: BP 95/63
[2019-07-21 04:00] VITALS: BP 103/75
--- NOTE | 2019-07-21 07:18 | NUR ---
HAND-OFF: Report given to nora Singh.
--- NOTE | 2019-07-21 07:20 | NUR ---
HAND-OFF: Report given to Ryann Singh.
[2019-07-21 07:46] LABS: BASOPHILS % (AUTO) 1.5 % (0.0-2.0); EOSINOPHILS % (AUTO) 2.6 % (0.0-3.0); HEMATOCRIT 48.5 % (42.0-52.0); LYMPHOCYTES % (AUTO) 39.8 % (20.0-45.0); MEAN CORPUSCULAR VOLUME 86 FL (80-99); MONOCYTES % (AUTO) 14.4 % (1.0-10.0); NEUTROPHILS % (AUTO) 41.7 % (45.0-75.0); PLATELET COUNT 242 K/UL (150-450); RED BLOOD COUNT 5.61 M/UL (4.70-6.10); RED CELL DISTRIBUTION WIDTH 14.6 % (11.6-14.8); WHITE BLOOD COUNT 4.6 K/UL (4.8-10.8)
[2019-07-21 08:21] LABS: ANION GAP 10 mmol/L (5-15); BLOOD UREA NITROGEN 12 mg/dL (7-18); CALCIUM 8.7 MG/DL (8.5-10.1); CARBON DIOXIDE 30 MMOL/L (21-32); CHLORIDE 102 MMOL/L (98-107); CREATININE 1.2 MG/DL (0.55-1.30); POTASSIUM 3.5 MMOL/L (3.5-5.1); SODIUM 142 MMOL/L (136-145)
[2019-07-21] MEDS: Docusate 100mg cap ORAL SCH (08:21)
[2019-07-21] MEDS: Amiodarone 200mg tab ORAL SCH (08:22)
[2019-07-21] MEDS: Aspirin Baby 81mg ORAL SCH (08:23)
[2019-07-21] MEDS: Losartan 25mg tab ORAL SCH (08:23)
[2019-07-21] MEDS: Carvedilol 25mg Tab ORAL SCH (08:24)
[2019-07-21] MEDS: Dabigatran 150mg cap ORAL SCH (08:24)
[2019-07-21 08:25] VITALS: BP 110/76
[2019-07-21] MEDS ORDERED: Spironolactone 25mg tab ORAL SCH (09:00)
[2019-07-21 12:00] VITALS: BP 105/70
--- NOTE | 2019-07-21 12:04 | Cardiac Electrophysiology PN ---
Assessment/Plan Assessment/Plan 1. Exacerbation of congestive heart failure. His BNP is more than 1300. Echocardiogram showed EF of only 10% to 15%. On Coreg 25 mg b.i.d., losartan 50 mg daily and Lasix 40 mg IV b.i.d. 2. [address] [employer] ICD 03/2018 . Interrogation showed nl fx with episodes of atrial fib and VT 3. Recurent VT better on Amiodarone 4. History of paroxysmal atrial fibrillation, on Pradaxa 150 mg b.i.d. , Coreg 25 mg b.i.d. and Amiodarone 400 daily 5. Hypertension. Continue current heart failure therapy. OK to DC Subjective Subjective Feeling better with diuresis. EF 15-20%.Had multiple episodes of VT as long as 30 seconds yesterday but no shocks Better on Amiodarone Objective Last 24 Hour Vital Signs Date Time Temp Pulse Resp B/P (MAP) Pulse Ox O2 Delivery O2 Flow Rate FiO2 07/21/19 09:20 Room Air 07/21/19 08:25 97.7 77 20 110/76 (87) 96 07/21/19 08:24 77 110/76 07/21/19 08:23 110/76 07/21/19 08:00 75 07/21/19 04:00 67 07/21/19 04:00 97.5 66 18 103/75 (84) 98 07/21/19 00:00 94 07/21/19 00:00 97.5 85 18 95/63 (74) 98 07/20/19 20:50 85 110/87 07/20/19 20:00 94 07/20/19 20:00 Room Air 07/20/19 20:00 97.9 85 18 110/87 (95) 98 07/20/19 16:00 97.7 96 21 130/72 (91) 97 07/20/19 16:00 81 Intake and Output 07/20/19 07/21/19 19:00 07:00 Intake Total 1200 ml Balance 1200 ml Intake Oral 1200 ml # Voids 2 Laboratory Tests Test 07/21/19 06:55 White Blood Count 4.6 K/UL (4.8-10.8) L Red Blood Count 5.61 M/UL (4.70-6.10) Hemoglobin 16.0 G/DL (14.2-18.0) Hematocrit 48.5 % (42.0-52.0) Mean Corpuscular Volume 86 FL (80-99) Mean Corpuscular Hemoglobin 28.5 PG (27.0-31.0) Mean Corpuscular Hemoglobin Concent 32.9 G/DL (32.0-36.0) Red Cell Distribution Width 14.6 % (11.6-14.8) Platelet Count 242 K/UL (150-450) Mean Platelet Volume 8.5 FL (6.5-10.1) Neutrophils (%) (Auto) 41.7 % (45.0-75.0) L Lymphocytes (%) (Auto) 39.8 % (20.0-45.0) Monocytes (%) (Auto) 14.4 % (1.0-10.0) H Eosinophils (%) (Auto) 2.6 % (0.0-3.0) Basophils (%) (Auto) 1.5 % (0.0-2.0) Sodium Level 142 MMOL/L (136-145) Potassium Level 3.5 MMOL/L (3.5-5.1) Chloride Level 102 MMOL/L (98-107) Carbon Dioxide Level 30 MMOL/L (21-32) Anion Gap 10 mmol/L (5-15) Blood Urea Nitrogen 12 mg/dL (7-18) Creatinine 1.2 MG/DL (0.55-1.30) Estimat Glomerular Filtration Rate > 60 mL/min (>60) Glucose Level 98 MG/DL (74-106) Calcium Level 8.7 MG/DL (8.5-10.1) Objective HEAD AND NECK: Show no JVD. LUNGS: Clear. CARDIOVASCULAR: Shows regular S1 and S2 with no gallop or murmur. Defibrillator is in left subclavian. ABDOMEN: Soft. EXTREMITIES: 2+ pitting edema. Jaime Valencia MD July 21, 2019 12:04
[2019-07-21] MEDS ORDERED: SPIRONOLACTONE25 MG ORAL (12:59)
[2019-07-21] MEDS ORDERED: FUROSEMIDE40 MG ORAL (12:59)
[2019-07-21] MEDS ORDERED: DABIGATRAN ORAL (12:59)
[2019-07-21] MEDS ORDERED: COREG25 MG ORAL (12:59)
[2019-07-21 16:00] VITALS: BP 125/62
--- NOTE | 2019-07-21 16:43 | NUR ---
-* INSURANCE *-* ALL CLINICALS AND REVIEWS HAVE BEEN FAXED TO: [facility]:SYED Reynolds: [phone] Fax#[phone] Addendum: 07/21/19 at 1644 by ADRIANA STALLWORTH updated clinicals and discharge instruction faxed no discharge summary in the system yet
--- NOTE | 2019-07-21 18:55 | NUR ---
NURSE NOTES: Patient is discharged home per MD's order. freezer worker removed. IV removed and patient tolerated well, no bleeding, no infiltration noted. Patient's medication picked up from pharmacy and given to patient. Patient's belonging list acknowledged and signed by patient. Patient is in stable condition.
[2019-07-21] MEDS ORDERED: Furosemide 40mg tab ORAL SCH (21:00)
--- NOTE | 2019-07-22 12:00 | NUR ---
*-* NO DISCHARGE SUMMARY IN THE SYSTEM UNABLE TO SENT TO [facility]. *-*
--- NOTE | 2019-07-23 17:25 | Discharge Summary ---
Discharge Summary Hospital Course Date of Admission July 18, 2019 at 10:58 Date of Discharge July 21, 2019 at 18:57 Admitting Diagnosis chf exacerbation HPI Deborah Sandoval is a 48 year old male who was admitted on July 18, 2019 at 10:58 for Congestive Heart Failure Exacerbation Hospital Course Assessment/Plan: 48-year-old AAM with PMH of CHF s/p ICD 2019, HTN and previous MIs x2 presents with acute chest tightness and SOB. On admission, patient found to have BNP 1400. #Chest Pain likely 2/2 #Acute on chronic systolic heart failure HFrEF #Elevated BNP #Pafib #Vtach -cont. in-pt medical care -ACS ruled out, trops mildly elevated 2/2 acute on chronic CHF exacerbation -BNP 1400 on admission -CXR b/l basilar hazy infiltrates vs edema -TTE EF 10-15% -daily weights, I's and O's -cont. home meds, coreg, losartan -cont. lasix 40 mg IV BID -cont. home pradaxa, coreg 25 mg BID -pt with 30 seconds of v tach overnight -d/w cardio - start amio, will watch overnight to ensure pt can tolerate meds and no further episodes -monitor and replace electrolytes #HTN -cont. home meds losartan 25 mg, carvedilol 25 mg BID -lasix as above #Hx Asthma -ctm DVT PPx: Pradaxa 150 mg 07/21: Patient was discharged home on medications; f/u with pcp. Stable and agreed with plan Discharge Discharge Vital Signs Last Vital Signs Date Time Temp Pulse Resp B/P (MAP) Pulse Ox O2 Delivery O2 Flow Rate FiO2 07/21/19 16:00 75 07/21/19 16:00 98.2 20 125/62 (83) 96 07/21/19 09:20 Room Air 07/18/19 09:18 99 Discharge Disposition Patient was discharged to [facility] July 23, 2019 17:25
--- NOTE | 2019-07-25 17:45 | NUR ---
-* INSURANCE *-* DISCHARGE SUMMARY HAS BEEN FAXED [facility]:SYED Reynolds: [phone]
== END 2019-07-21 18:57 | disposition home or self-care (01) | DRG 292 ==
LOC: EMR 09:16 → 2E 10:58 → EDBEDREQ 07-19 00:13 → 2E 07-19 05:40
DX: I11.0 Hypertensive heart disease with heart failure (principal); Z68.41 Body mass index [BMI] 40.0-44.9, adult; I47.2 Ventricular tachycardia; I50.23 Acute on chronic systolic (congestive) heart failure; I48.0 Paroxysmal atrial fibrillation; E66.9 Obesity, unspecified; Z88.8 Allergy status to other drugs, medicaments and biological substances; Z95.810 Presence of automatic (implantable) cardiac defibrillator; J45.909 Unspecified asthma, uncomplicated; I25.2 Old myocardial infarction
CPT/HCPCS: 36415; 71045; 80048; 80053; 80162; 80307; 83690; 83880; 84484; 85025; 85379; 93005; 93306; 96374; 99285